=== PATIENT | female | born 1955 | race Caucasian/White ===

== ENCOUNTER 2018-09-02 19:44 | Inpatient (IN) ==
[2018-09-02] MEDS ORDERED: Ipratropium/Albuterol Neb 3 ML IH ONE (20:28)
[2018-09-02] MEDS ORDERED: 0.9 % Sodium Chloride 500 ML IVC ONE (20:29)
--- NOTE | 2018-09-02 20:53 | Emergency Department Note ---
Disposition Clinical Impression: Urinary retention Sacral decubitus ulcer Qualifiers: Pressure injury stage: unspecified pressure injury stage Qualified Code(s): L89.159 - Pressure ulcer of sacral region, unspecified stage UTI (urinary tract infection) Qualifiers: Urinary tract infection type: site unspecified Hematuria presence: without hematuria Qualified Code(s): N39.0 - Urinary tract infection, site not specified Anemia Qualifiers: Anemia type: unspecified type Qualified Code(s): D64.9 - Anemia, unspecified Disposition: Admitted As Inpatient Condition: Fair Forms: ED Satisfaction Letter Time of Disposition: 23:34 General Adult HPI - General Stated complaint: SOB/Butt wound Time Seen by Provider: 09/02/18 19:50 Source: patient, family Limitations: no limitations Nursing Notes Reviewed: Yes Vital Signs Reviewed: Yes - History of Present Illness Pain Scale: 9 - Related Data Home Medications Medication Instructions Recorded Confirmed Benadryl 03/09/15 03/09/15 Cardizem 03/09/15 03/09/15 Inderal 03/09/15 03/09/15 Klonopin 03/09/15 03/09/15 Lasix 03/09/15 03/09/15 Lisinopril 03/09/15 03/09/15 Melatonin 03/09/15 03/09/15 Nitroglycerin 03/09/15 03/09/15 Osteo Bi-Flex Caplet 03/09/15 03/09/15 OxyCODONE ER (12 HR) [Oxycontin] 30 mg PO TID 03/09/15 03/09/15 Plavix 03/09/15 03/09/15 Potassium Chloride 03/09/15 03/09/15 Synthroid 03/09/15 03/09/15 Allergies Allergy/AdvReac Type Severity Reaction Status Date / Time Amoxicillin Allergy Hives Verified 09/02/18 19:58 cetirizine [From Zyrtec] Allergy Hypertensio Verified 09/02/18 19:58 n Erythromycin Base Allergy Hives Verified 09/02/18 19:58 levofloxacin [From Levaquin] Allergy See Verified 09/02/18 19:58 Comments naproxen Allergy Rash Verified 09/02/18 19:58 Penicillins [PCN] Allergy Hives Verified 09/02/18 19:58 tramadol [From Ultram] Allergy Rash Verified 09/02/18 19:58 Past Medical History - Past Medical History Medical history: Reports: asthma, CHF, COPD, CVA, diabetes, fibromyalgia, glaucoma, hyperlipidemia, hypertension, thyroid disease, other Surgical history: Reports: angioplasty/stent, hysterectomy Psychiatric history: Reports: anxiety, panic disorder 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 - Social History Smoking Status: Current every day smoker Smokeless Tobacco Status: No Alcohol use: Reports: none Drug use: Reports: none Physical Exam - General Limitations: no limitations General appearance: alert - Rectal Exam B2B 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) Course Vital Signs Temperature 98.8 F 09/02/18 20:00 Pulse Rate 100 09/02/18 20:00 Respiratory Rate 24 09/02/18 20:00 Blood Pressure 142/63 09/02/18 20:00 O2 Sat by Pulse Oximetry 100 09/02/18 20:00 Temperature 98.8 F 09/02/18 20:03 Pulse Rate 93 09/02/18 22:00 Respiratory Rate 20 09/02/18 22:00 Blood Pressure 133/57 09/02/18 22:00 O2 Sat by Pulse Oximetry 100 09/02/18 22:05 Oxygen Delivery Oxygen Delivery Nasal Cannula Medical Decision Making - Lab Data Result diagrams: 09/02/18 21:52 09/02/18 20:50 Lab Results 09/02/18 09/02/18 09/02/18 Range/Units 20:50 21:52 21:52 WBC 9.6 (4.3-11.1) K/mcL RBC 2.74 L (3.82-4.97) M/mcL Hgb 7.5 L (11.5-15.4) g/dL Hct 24.1 L (35.3-44.9) % MCV 88.0 (83.0-100.0) fL MCH 27.4 L (28.0-33.3) pg MCHC 31.1 L (31.6-35.5) g/dL RDW 16.5 H (11.5-14.5) % Plt Count 133 L (140-400) K/mcL MPV 10.2 (9.4-12.4) fL Immature Gran % 0.2 (0-4) % Seg Neutrophils % 75.3 % Lymphocytes % 15.0 % Monocytes % 9.1 % Eosinophils % 0.3 % Basophils % 0.1 % Neutrophils # 7.3 (1.6-8.9) K/mcL Lymphocytes # 1.5 (0.6-4.6) K/mcL Monocytes # 0.9 (0.0-1.3) K/mcL Eosinophils # 0.0 (0.0-0.6) K/mcL Basophils # 0.0 (0.0-0.2) K/mcL PT 12.5 H (9.4-12.1) Seconds INR 1.1 APTT 27.1 (26.0-36.0) Seconds Sodium 135 L (136-145) mEq/L Potassium 3.5 (3.5-5.1) mEq/L Chloride 100 (98-107) mEq/L Carbon Dioxide 24 (23-29) mEq/L BUN 12 (8-23) mg/dL Creatinine 0.80 (0.60-1.20) mg/dL Est GFR ( Amer) > 60 (> 60) Est GFR (Non-Af Amer) > 60 (> 60) BUN/Creatinine Ratio 15 (6-26) Glucose 313 H (70-105) mg/dL Calculated Osmolality 292 (280-300) Lactic Acid (0.5-2.2) mmol/L Calcium 7.9 L (8.6-10.3) mg/dL Phosphorus 3.1 (2.7-4.5) mg/dL Magnesium 1.1 L (1.6-2.6) mg/dL Total Bilirubin 0.4 (0.3-1.0) mg/dL Direct Bilirubin 0.1 (0.0-0.2) mg/dL Indirect Bilirubin 0.3 (0.0-1.2) mg/dL AST 22 (13-39) Units/L ALT 20 (7-52) Units/L Alkaline Phosphatase 110 H (34-104) Units/L Troponin I < 0.03 (< 0.04) ng/mL Serum Total Protein 5.2 L (6.4-8.9) g/dL Albumin 2.7 L (3.5-5.7) g/dL Globulin 2.5 (2.4-3.5) g/dL Albumin/Globulin Ratio 1.1 (1.1-2.2) Urine Color (Yellow) Urine Clarity (Clear) Urine pH (5.0-8.0) pH Units Ur Specific [place] (1.010-1.025) Urine Protein (Neg-Trace) mg/dL Urine Glucose (UA) (Normal) mg/dL Urine Ketones (Negative) mg/dL Urine Blood (Negative) Urine Nitrite (Negative) Urine Bilirubin (Negative) Urine Urobilinogen (Normal) mg/dL Ur Leukocyte Esterase (Negative) Urine Microscopic RBC (0-3) per hpf Urine Microscopic WBC (0-3) per hpf Ur Squamous Epith Cells (None-Few) per lpf Urine Bacteria (None-Few) per hpf Hyaline Casts (None-Few) per lpf Ur Culture Indicated? (NO) 09/02/18 09/02/18 Range/Units 21:52 22:22 WBC (4.3-11.1) K/mcL RBC (3.82-4.97) M/mcL Hgb (11.5-15.4) g/dL Hct (35.3-44.9) % MCV (83.0-100.0) fL MCH (28.0-33.3) pg MCHC (31.6-35.5) g/dL RDW (11.5-14.5) % Plt Count (140-400) K/mcL MPV (9.4-12.4) fL Immature Gran % (0-4) % Seg Neutrophils % % Lymphocytes % % Monocytes % % Eosinophils % % Basophils % % Neutrophils # (1.6-8.9) K/mcL Lymphocytes # (0.6-4.6) K/mcL Monocytes # (0.0-1.3) K/mcL Eosinophils # (0.0-0.6) K/mcL Basophils # (0.0-0.2) K/mcL PT (9.4-12.1) Seconds INR APTT (26.0-36.0) Seconds Sodium (136-145) mEq/L Potassium (3.5-5.1) mEq/L Chloride (98-107) mEq/L Carbon Dioxide (23-29) mEq/L BUN (8-23) mg/dL Creatinine (0.60-1.20) mg/dL Est GFR ( Amer) (> 60) Est GFR (Non-Af Amer) (> 60) BUN/Creatinine Ratio (6-26) Glucose (70-105) mg/dL Calculated Osmolality (280-300) Lactic Acid 1.7 (0.5-2.2) mmol/L Calcium (8.6-10.3) mg/dL Phosphorus (2.7-4.5) mg/dL Magnesium (1.6-2.6) mg/dL Total Bilirubin (0.3-1.0) mg/dL Direct Bilirubin (0.0-0.2) mg/dL Indirect Bilirubin (0.0-1.2) mg/dL AST (13-39) Units/L ALT (7-52) Units/L Alkaline Phosphatase (34-104) Units/L Troponin I (< 0.04) ng/mL Serum Total Protein (6.4-8.9) g/dL Albumin (3.5-5.7) g/dL Globulin (2.4-3.5) g/dL Albumin/Globulin Ratio (1.1-2.2) Urine Color Yellow (Yellow) Urine Clarity Cloudy A (Clear) Urine pH 6.0 (5.0-8.0) pH Units Ur Specific [place] 1.008 L (1.010-1.025) Urine Protein Trace (Neg-Trace) mg/dL Urine Glucose (UA) 100 H (Normal) mg/dL Urine Ketones Negative (Negative) mg/dL Urine Blood Small H (Negative) Urine Nitrite Positive A (Negative) Urine Bilirubin Negative (Negative) Urine Urobilinogen Normal (Normal) mg/dL Ur Leukocyte Esterase Large H (Negative) Urine Microscopic RBC 3-5 H (0-3) per hpf Urine Microscopic WBC TNTC H (0-3) per hpf Ur Squamous Epith Cells Moderate H (None-Few) per lpf Urine Bacteria Many H (None-Few) per hpf Hyaline Casts None Seen (None-Few) per lpf Ur Culture Indicated? YES A (NO) Critical Care Time Critical Care Time: Yes Total Critical Care Time: 35 Attestation: Critical care performed: Time is exclusive of separately billable procedures. Time includes: direct patient care, patient reassessment, coordination of patient care, interpretation of data (laboratory data, radiology data, and respiratory data), review of patient's medical records, medical consultation and documentation of patient care. Procedures included in critical care time: Procedures excluded from critical care time: Attestation Statement - Attestation Attestation: I examined this patient and my medical decision-making was reviewed with the Resident Physician. I agree with the documented findings, disposition and treatment plan as described except to the extent set forth below. Patient presents to the ED with a chief complaint shortness of breath and a sacral 1. Patient has had increasing shortness of breath over the past day. Patient was recently brought here from out of town by her family to live with [facility]. Patient was admitted for respiratory failure and had a prolonged stay and was on a ventilator. She had a trach and PEG tube placed at that time. She also had a significant stroke with persistent left hemiplegia. She developed a sacral wound while in an LTAC that is getting worse. Termination she has an open wound over the sacrum. There is a moderate size area with a black eschar. The lateral portion of that is breaking loose. It is open. It was probed and culture sent. Foul-smelling. Lung sounds diminished. Plan. Cardiac workup. Culture sent. CT pelvis. Likely admission. Patient with UTI. Wound smells of pseudomonas. Starting broad-spectrum in about X to double cover Pseudomonas. We will admit. 11 7.5. Patient does admit a history of low blood counts Zonia recommended to see a "cancer doctor." Stool Hemoccult sent. We will type and cross. Patient is hemolytically stable at holding onto transfusion at this time. Calling for admission.
[2018-09-02 21:39] LABS: Alanine Aminotransferase 20 Units/L (7-52); Albumin 2.7 g/dL (3.5-5.7); Albumin/Globulin Ratio 1.1 (1.1-2.2); Alkaline Phosphatase 110 Units/L (34-104); Aspartate Amino Transferase 22 Units/L (13-39); BUN/Creatinine Ratio 15 (6-26); Bilirubin,Direct 0.1 mg/dL (0.0-0.2); Bilirubin,Indirect 0.3 mg/dL (0.0-1.2); Bilirubin,Total 0.4 mg/dL (0.3-1.0); Blood Urea Nitrogen 12 mg/dL (8-23); Calcium 7.9 mg/dL (8.6-10.3); Carbon Dioxide 24 mEq/L (23-29); Chloride 100 mEq/L (98-107); Globulin 2.5 g/dL (2.4-3.5); Glucose 313 mg/dL (70-105); Magnesium 1.1 mg/dL (1.6-2.6); Osmolality,Calculated 292 (280-300); Phosphorous 3.1 mg/dL (2.7-4.5); Potassium 3.5 mEq/L (3.5-5.1); Sodium 135 mEq/L (136-145); Total Protein 5.2 g/dL (6.4-8.9); Troponin I < 0.03 ng/mL (< 0.04); eGFR For Non-African Americans > 60 (> 60)
[2018-09-02] MEDS ORDERED: Isovue-370 500 ML BOTTLE IVP ONE (21:40)
--- NOTE | 2018-09-02 21:41 | Emergency Department Note ---
Disposition Clinical Impression: Urinary retention Sacral decubitus ulcer Qualifiers: Pressure injury stage: unspecified pressure injury stage Qualified Code(s): L89.159 - Pressure ulcer of sacral region, unspecified stage UTI (urinary tract infection) Qualifiers: Urinary tract infection type: site unspecified Hematuria presence: without hematuria Qualified Code(s): N39.0 - Urinary tract infection, site not specified Anemia Qualifiers: Anemia type: unspecified type Qualified Code(s): D64.9 - Anemia, unspecified Disposition: Admitted As Inpatient Condition: Fair Referrals: NONE,PCP [Primary Care Provider] - Forms: ED Satisfaction Letter Time of Disposition: 23:42 SOB HPI - General Chief Complaint: ED Shortness of Breath/Dyspnea Stated Complaint: SOB/Butt wound Time Seen by Provider: 09/02/18 19:50 Source: patient, family Limitations: no limitations - History of Present Illness 63-year-old female that was recently admitted to the hospital June through August of this year for stroke, respiratory failure. Patient spent a long time in the ICU first intubated on a ventilator and then with a tracheostomy tube. Patient was sent to a long-term care facility for rehabilitation and while there developed a sacral decubitus ulcer. Daughter has been taking care of her in her home, is a nurse, and states that today she became more short of breath so brou ght her to the hospital to be evaluated. Daughter notes that the wound on her backside appears to be getting worse, has a foul odor, and is now draining green purulent material. Daughter notes that she wanted to give her a breathing treatment today but did not have a nebulizer or any medication. Pt was seen at [facility] this week and they told her to follow up with wound care, but she could not get an appointment until next week. - Related Data Home Medications Medication Instructions Recorded Confirmed Benadryl 03/09/15 03/09/15 Cardizem 03/09/15 03/09/15 Inderal 03/09/15 03/09/15 Klonopin 03/09/15 03/09/15 Lasix 03/09/15 03/09/15 Lisinopril 03/09/15 03/09/15 Melatonin 03/09/15 03/09/15 Nitroglycerin 03/09/15 03/09/15 Osteo Bi-Flex Caplet 03/09/15 03/09/15 OxyCODONE ER (12 HR) [Oxycontin] 30 mg PO TID 03/09/15 03/09/15 Plavix 03/09/15 03/09/15 Potassium Chloride 03/09/15 03/09/15 Synthroid 03/09/15 03/09/15 Allergies Allergy/AdvReac Type Severity Reaction Status Date / Time Amoxicillin Allergy Hives Verified 09/02/18 19:58 cetirizine [From Zyrtec] Allergy Hypertensio Verified 09/02/18 19:58 n Erythromycin Base Allergy Hives Verified 09/02/18 19:58 levofloxacin [From Levaquin] Allergy See Verified 09/02/18 19:58 Comments naproxen Allergy Rash Verified 09/02/18 19:58 Penicillins [PCN] Allergy Hives Verified 09/02/18 19:58 tramadol [From Ultram] Allergy Rash Verified 09/02/18 19:58 Review of Systems: All systems ED: reviewed and negative except as stated. Constitutional: Denies: fever, Reports: chills ENT ED: Denies: ear pain, throat pain Cardiovascular: Denies: chest pain, palpitations Respiratory: Denies: cough, Reports: dyspnea Gastrointestinal: Denies: abdominal pain, nausea, vomiting, diarrhea, constipation Genitourinary: Denies: urgency, dysuria, frequency Musculoskeletal: Denies: neck pain Reports: back pain Integumentary: Denies: rash, abrasion Reports: sacral decubitus ulcer Neurological: Denies: weakness, numbness, paresthesias Reports: headache Psychiatric: Denies: anxiety, depression Endocrine: Denies: fatigue, heat or cold intolerance Hematological/Lymphatic: Denies: easy bleeding, easy bruising Allergic/Immunologic: Denies: facial swelling, urticaria Past Medical History - Past Medical History Attestation: Yes The following information was validated with the patient. 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 No acute distress. Thin, cachetic female. Head: atraumatic, normocephalic. ENT: Right eye is closed, but pt can open it if you ask. Oropharynx non- erythematous. mucous membranes tacky. Neuro: Pt has residual left sided weakness from previous CVA. Pulm: Diminished lung sounds in bases. Cardio: RRR no m/r/g. Chest not tender to palpation. Abd: Distended. Tender to palpation. No guarding. Non rigid. States that she pees if you push on her abdomen. Back: 8cm sacral decubitus ulcer with area of black eschar on left buttock, with open area on right buttock draining greenish purulent fluid. Foul smell noted. Extremities: Radial pulses 2+ rudy Mild, non-pitting LE edema. No cyanosis, clubbing. Skin: warm, dry, intact. No rashes. Psych: Appropriate mood and affect. Answers questions appropriately. Cooperative with exam. - General Limitations: no limitations General appearance: alert Course Course Narrative: Ddx includes but is not limited to: sepsis from decubitus ulcer, PNA Workup will include: Wound culture, CXR, EKG, CT Pelvis, sepsis labs. Suspect admit. Vital Signs Temperature 98.8 F 09/02/18 20:00 Pulse Rate 100 09/02/18 20:00 Respiratory Rate 24 09/02/18 20:00 Blood Pressure 142/63 09/02/18 20:00 O2 Sat by Pulse Oximetry 100 09/02/18 20:00 Temperature 98.8 F 09/02/18 20:03 Pulse Rate 93 09/02/18 22:00 Respiratory Rate 20 09/02/18 22:00 Blood Pressure 133/57 09/02/18 22:00 O2 Sat by Pulse Oximetry 100 09/02/18 22:05 Oxygen Delivery Oxygen Delivery Nasal Cannula Shortness of Breath/Dyspnea - [facility] Narrative Medical decision making narrative: Pts CT showed evidence of deep soft tissue infection and inflammation overlying the sacral decubitus ulcer, as well as enlarged bladder. Labs showed anemia at 7.5, elevated glucose >300, Lactic 1.7. Pt was admitted to hospitalist, Dr Jose doherty, who agreed to accept the pt to his service. Pt was given ertapenem and cefepime to cover for pseudomonas, a small bolus due to consideration for hx of CHF, had wound cultures, urine cultures, and blood cultures sent to lab. Patient was given an opportunity to ask questions at bedside and all of their concerns were addressed. Patient verbalized understanding and agreement with plan of care. Pt remained stable while in the department. - Medical Records Medical records reviewed: Yes I reviewed the patient's medical records. - Lab Data Lab results reviewed: Yes I reviewed the patient's lab results. Result diagrams: 09/02/18 21:52 09/02/18 20:50 Lab Results 09/02/18 09/02/18 09/02/18 Range/Units 20:50 21:52 21:52 WBC 9.6 (4.3-11.1) K/mcL RBC 2.74 L (3.82-4.97) M/mcL Hgb 7.5 L (11.5-15.4) g/dL Hct 24.1 L (35.3-44.9) % MCV 88.0 (83.0-100.0) fL MCH 27.4 L (28.0-33.3) pg MCHC 31.1 L (31.6-35.5) g/dL RDW 16.5 H (11.5-14.5) % Plt Count 133 L (140-400) K/mcL MPV 10.2 (9.4-12.4) fL Immature Gran % 0.2 (0-4) % Seg Neutrophils % 75.3 % Lymphocytes % 15.0 % Monocytes % 9.1 % Eosinophils % 0.3 % Basophils % 0.1 % Neutrophils # 7.3 (1.6-8.9) K/mcL Lymphocytes # 1.5 (0.6-4.6) K/mcL Monocytes # 0.9 (0.0-1.3) K/mcL Eosinophils # 0.0 (0.0-0.6) K/mcL Basophils # 0.0 (0.0-0.2) K/mcL PT 12.5 H (9.4-12.1) Seconds INR 1.1 APTT 27.1 (26.0-36.0) Seconds Sodium 135 L (136-145) mEq/L Potassium 3.5 (3.5-5.1) mEq/L Chloride 100 (98-107) mEq/L Carbon Dioxide 24 (23-29) mEq/L BUN 12 (8-23) mg/dL Creatinine 0.80 (0.60-1.20) mg/dL Est GFR ( Amer) > 60 (> 60) Est GFR (Non-Af Amer) > 60 (> 60) BUN/Creatinine Ratio 15 (6-26) Glucose 313 H (70-105) mg/dL Calculated Osmolality 292 (280-300) Lactic Acid (0.5-2.2) mmol/L Calcium 7.9 L (8.6-10.3) mg/dL Phosphorus 3.1 (2.7-4.5) mg/dL Magnesium 1.1 L (1.6-2.6) mg/dL Total Bilirubin 0.4 (0.3-1.0) mg/dL Direct Bilirubin 0.1 (0.0-0.2) mg/dL Indirect Bilirubin 0.3 (0.0-1.2) mg/dL AST 22 (13-39) Units/L ALT 20 (7-52) Units/L Alkaline Phosphatase 110 H (34-104) Units/L Troponin I < 0.03 (< 0.04) ng/mL Serum Total Protein 5.2 L (6.4-8.9) g/dL Albumin 2.7 L (3.5-5.7) g/dL Globulin 2.5 (2.4-3.5) g/dL Albumin/Globulin Ratio 1.1 (1.1-2.2) Urine Color (Yellow) Urine Clarity (Clear) Urine pH (5.0-8.0) pH Units Ur Specific [place] (1.010-1.025) Urine Protein (Neg-Trace) mg/dL Urine Glucose (UA) (Normal) mg/dL Urine Ketones (Negative) mg/dL Urine Blood (Negative) Urine Nitrite (Negative) Urine Bilirubin (Negative) Urine Urobilinogen (Normal) mg/dL Ur Leukocyte Esterase (Negative) Urine Microscopic RBC (0-3) per hpf Urine Microscopic WBC (0-3) per hpf Ur Squamous Epith Cells (None-Few) per lpf Urine Bacteria (None-Few) per hpf Hyaline Casts (None-Few) per lpf Ur Culture Indicated? (NO) Stool Occult Bld Scrn (Negative) 09/02/18 09/02/18 09/02/18 Range/Units 21:52 22:22 23:31 WBC (4.3-11.1) K/mcL RBC (3.82-4.97) M/mcL Hgb (11.5-15.4) g/dL Hct (35.3-44.9) % MCV (83.0-100.0) fL MCH (28.0-33.3) pg MCHC (31.6-35.5) g/dL RDW (11.5-14.5) % Plt Count (140-400) K/mcL MPV (9.4-12.4) fL Immature Gran % (0-4) % Seg Neutrophils % % Lymphocytes % % Monocytes % % Eosinophils % % Basophils % % Neutrophils # (1.6-8.9) K/mcL Lymphocytes # (0.6-4.6) K/mcL Monocytes # (0.0-1.3) K/mcL Eosinophils # (0.0-0.6) K/mcL Basophils # (0.0-0.2) K/mcL PT (9.4-12.1) Seconds INR APTT (26.0-36.0) Seconds Sodium (136-145) mEq/L Potassium (3.5-5.1) mEq/L Chloride (98-107) mEq/L Carbon Dioxide (23-29) mEq/L BUN (8-23) mg/dL Creatinine (0.60-1.20) mg/dL Est GFR ( Amer) (> 60) Est GFR (Non-Af Amer) (> 60) BUN/Creatinine Ratio (6-26) Glucose (70-105) mg/dL Calculated Osmolality (280-300) Lactic Acid 1.7 (0.5-2.2) mmol/L Calcium (8.6-10.3) mg/dL Phosphorus (2.7-4.5) mg/dL Magnesium (1.6-2.6) mg/dL Total Bilirubin (0.3-1.0) mg/dL Direct Bilirubin (0.0-0.2) mg/dL Indirect Bilirubin (0.0-1.2) mg/dL AST (13-39) Units/L ALT (7-52) Units/L Alkaline Phosphatase (34-104) Units/L Troponin I (< 0.04) ng/mL Serum Total Protein (6.4-8.9) g/dL Albumin (3.5-5.7) g/dL Globulin (2.4-3.5) g/dL Albumin/Globulin Ratio (1.1-2.2) Urine Color Yellow (Yellow) Urine Clarity Cloudy A (Clear) Urine pH 6.0 (5.0-8.0) pH Units Ur Specific [place] 1.008 L (1.010-1.025) Urine Protein Trace (Neg-Trace) mg/dL Urine Glucose (UA) 100 H (Normal) mg/dL Urine Ketones Negative (Negative) mg/dL Urine Blood Small H (Negative) Urine Nitrite Positive A (Negative) Urine Bilirubin Negative (Negative) Urine Urobilinogen Normal (Normal) mg/dL Ur Leukocyte Esterase Large H (Negative) Urine Microscopic RBC 3-5 H (0-3) per hpf Urine Microscopic WBC TNTC H (0-3) per hpf Ur Squamous Epith Cells Moderate H (None-Few) per lpf Urine Bacteria Many H (None-Few) per hpf Hyaline Casts None Seen (None-Few) per lpf Ur Culture Indicated? YES A (NO) Stool Occult Bld Scrn Negative (Negative) - Radiology Data Radiology results reviewed: Yes I reviewed the patient's radiology results. Chest X-Ray 09/02/18 20:27 IMPRESSION: No acute abnormality identified. D/ / Alphonso Salcedo MD / Alphonso Salcedo MD Interpreting Provider: Alphonso Salcedo MD Pelvis CT 09/02/18 21:40 IMPRESSION: 1. Deep soft tissue ulcer overlying the inferior left sacrum and to the left of the coccyx. No evidence of abscess. No CT evidence of osteomyelitis at this time. 2. Severe distention of the urinary bladder with distal hydroureter. 3. Mild haziness of the presacral fat, which could be related to inflammation in the rectum versus reactive to inflammation at the sacral decubitus ulcer. D/ / Ruchi Vanegas / Ruchi Vanegas Interpreting Provider: Ruchi Vanegas - EKG Data EKG attestation: Yes I reviewed and interpreted this EKG. EKG results narrative: HR 101, rhythm sinus tachycardia, axis normal. [place] 125, QRS 86, QTc 429. 1 PVC noted on EKG. No evidence of ST elevation or depression.
[2018-09-02 22:13] LABS: Basophils % 0.1 %; Eosinophils % 0.3 %; Hematocrit 24.1 % (35.3-44.9); Hemoglobin 7.5 g/dL (11.5-15.4); Immature Granulocytes % 0.2 % (0-4); Lymphocytes # 1.5 K/mcL (0.6-4.6); Mean Corpuscular HGB Conc 31.1 g/dL (31.6-35.5); Mean Corpuscular Hemoglobin 27.4 pg (28.0-33.3); Mean Platelet Volume 10.2 fL (9.4-12.4); Monocytes # 0.9 K/mcL (0.0-1.3); Monocytes % 9.1 %; Neutrophils # 7.3 K/mcL (1.6-8.9); Platelet Count 133 K/mcL (140-400); Red Blood Count 2.74 M/mcL (3.82-4.97); Red Cell Distribution Width 16.5 % (11.5-14.5); Segmented Neutrophils % 75.3 %
[2018-09-02 22:21] LABS: INR 1.1; Prothrombin Time 12.5 Seconds (9.4-12.1)
[2018-09-02 22:24] LABS: Activated Partial Thrombo Time 27.1 Seconds (26.0-36.0)
[2018-09-02 22:40] LABS: Bilirubin,Urine Negative (Negative); Blood,Urine Small (Negative); Clarity,Urine Cloudy (Clear); Color,Urine Yellow (Yellow); Glucose,Urine (UA) 100 mg/dL (Normal); Ketones,Urine Negative (Negative); Leukocyte Esterase,Urine Large (Negative); Nitrite,Urine Positive (Negative); Protein,Urine Trace mg/dL (Neg-Trace); Specific Gravity,Urine 1.008 (1.010-1.025); Urobilinogen,Urine Normal (Normal)
[2018-09-02 22:42] LABS: Bacteria,Urine Many per hpf (None-Few); Hyaline Casts,Urine None Seen per lpf (None-Few); Squamous Epithelial Cell,Urine Moderate per lpf (None-Few); WBC,Urine TNTC per hpf (0-3)
[2018-09-02] MEDS ORDERED: Ertapenem 1,000 MG in 0.9 % Sodium Chloride Mini Bag 100 ML IVPB STA (23:08)
[2018-09-02] MEDS ORDERED: Cefepime HCl 2,000 MG in 0.9 % Sodium Chloride Mini Bag 100 ML IVPB STA (23:10)
[2018-09-03] MEDS ORDERED: Dextrose Gel 15 GM/37.5 ML TUBE PO PRN ×2 (02:30)
[2018-09-03] MEDS ORDERED: *HR* Dextrose 50 % in Water (Syg) 50 ML SYRINGE IVP PRN (02:30)
[2018-09-03] MEDS ORDERED: Ondansetron 4 MG/2 ML VIAL IVP PRN (02:30)
[2018-09-03] MEDS ORDERED: D5% in Water 1,000 ML IVC PRN (02:30)
[2018-09-03] MEDS ORDERED: Naloxone 0.4 MG/ML INJ IVP PRN (02:30)
[2018-09-03] MEDS ORDERED: Albuterol 2.5 MG/3 ML NEBULIZER IH PRN (02:30)
[2018-09-03 03:13] LABS: Basophils % 0.1 %; Eosinophils # 0.1 K/mcL (0.0-0.6); Eosinophils % 0.9 %; Hematocrit 26.6 % (35.3-44.9); Hemoglobin 8.3 g/dL (11.5-15.4); Immature Granulocytes % 0.3 % (0-4); Lymphocytes # 1.8 K/mcL (0.6-4.6); Lymphocytes % 18.5 %; Mean Corpuscular HGB Conc 31.2 g/dL (31.6-35.5); Mean Corpuscular Hemoglobin 27.2 pg (28.0-33.3); Mean Corpuscular Volume 87.2 fL (83.0-100.0); Monocytes # 0.7 K/mcL (0.0-1.3); Monocytes % 6.6 %; Neutrophils # 7.3 K/mcL (1.6-8.9); Platelet Count 142 K/mcL (140-400); Red Blood Count 3.05 M/mcL (3.82-4.97); Red Cell Distribution Width 16.5 % (11.5-14.5); Segmented Neutrophils % 73.6 %
[2018-09-03 03:32] LABS: Alanine Aminotransferase 18 Units/L (7-52); Albumin 2.5 g/dL (3.5-5.7); Alkaline Phosphatase 101 Units/L (34-104); Aspartate Amino Transferase 17 Units/L (13-39); BUN/Creatinine Ratio 15 (6-26); Bilirubin,Total 0.4 mg/dL (0.3-1.0); Blood Urea Nitrogen 11 mg/dL (8-23); Calcium 7.9 mg/dL (8.6-10.3); Carbon Dioxide 29 mEq/L (23-29); Chloride 103 mEq/L (98-107); Globulin 2.5 g/dL (2.4-3.5); Glucose 151 mg/dL (70-105); Magnesium 1.1 mg/dL (1.6-2.6); Osmolality,Calculated 292 (280-300); Phosphorous 2.8 mg/dL (2.7-4.5); Potassium 3.2 mEq/L (3.5-5.1); Sodium 140 mEq/L (136-145); eGFR For Non-African Americans > 60 (> 60)
[2018-09-03] MEDS: 0.9 % Sodium Chloride w KCl 20 MEQ/1,000 ML MLS IVC SCH ×2 (03:52→11:57)
[2018-09-03] MEDS: Hydrocortisone Sodium Succ 100 MG/2 ML VIAL IVP SCH ×3 (03:56→18:36)
--- NOTE | 2018-09-03 04:04 | Internal Med History&Physical ---
Date of Encounter: 09/03/18 Time of Encounter: 02:05 Internal Medicine - H&P: HPI Chief complaint: sacral wound/ulcer; SOB Admitted From: Emergency Dept Plans for Post Hospital Care: Transfer Snf Facility History of present illness: Ms. Rosenthal is a 63 year old female who was brought in by her daughter for c oncerns of a foul smelling and worsening sacral decubitus ulcer. Patient was recently moved to her daughter's house in [place], [place] from [place]. Patient had a long and complicated hospital course for over the last few months since June of this year. She was hospitalized back home in [place] for respiratory failure and pneumonia. 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 She had to be intubated 3 times and had a prolonged intubated course. She then underwent tracheostomy and PEG tube placement and was transferred to LTAC. She later developed sacral ulcer with failure to improve. She was eventually discharged from LTAC and w eaned off the ventilator. She has been eating on her own and breathing on her own. However, sacral ulcer has failed to improve and has clinically worsened. Her daughter brought her back to [place] to help take care of her since she no longer qualified for ECF and/or inpatient nursing care. Unfortunately, she has been here in [place] for a one-week and her daughter reports the sacral wound is worsening. She therefore brought her to the ER today for evaluation. Daughter also reports the patient had increased difficulty breathing and was having some coughing. Workup in ER revealed patient to have anemia, large sacral foul smelling ulcer, and debilitated state. She was admitted to hospitalist service for further workup and care. I saw patient in ER and discussed with patient and daughter extensively. We have no old records. All history was obtained from daughter and patient. Patient and daughter deny any history of blood loss or bleeding. They do not know if patient has ever had any anemia in the past. Daughter does report that she has had bilateral adrenalectomies in the past for adrenal tumors. She has since been on steroid replacement therapy at home and is at risk for adrenal insufficiency. I asked patient and daughter to sign consent so we can obtain old records from her hospital stay in [place]. I discussed CODE STATUS with patient and family and she is full code. Past Med Surg Social Fam HX - Past Medical History Attestation: Yes The following information was validated with the patient. Source: patient, obtained from family Medical history: asthma, CHF, COPD, CVA, diabetes, fibromyalgia, glaucoma, hyperlipidemia, hypertension, thyroid disease Additional medical history: Stg 3 buttock wound-now unstagable Psychiatric history: anxiety, panic disorder - Past Surgical History Surgical History: angioplasty/stent, hysterectomy Additional surgical history: adrenal glands removed. trach and trach removal. cardiac stents x2 - Social History Smoking Status: Current every day smoker Smokeless Tobacco Status: No Alcohol use: none Drug use: none Current living situation: Home, With Family Activity Level: Bed bound, Mostly sedentary Recent Out of Country Travel Within the Last 8 Weeks: No - Family History Mother History Unknown: Yes Father History Unknown: Yes Internal Medicine - H&P: Meds Inderal 10 mg PO BID 03/09/15 [History] Klonopin 1 mg PO TID 03/09/15 [History] Lasix 20 mg PO DAILY 03/09/15 [History] Lipitor 80 mg PO DAILY 03/09/15 [History] OxyCODONE ER (12 HR) [Oxycontin] 30 mg PO BID 03/09/15 [History] Plavix 75 mg PO DAILY 03/09/15 [History] Potassium Chloride 10 meq PO BID 03/09/15 [History] Synthroid 50 mcg PO DAILY 03/09/15 [History] Colace 100 mg PO BID 09/03/18 [History] Colace 200 mg PO BID 09/03/18 [History] Fludrocortisone Acetate [Florinef] 0.1 mg PO DAILY 09/03/18 [History] Folic Acid 1 mg PO DAILY 09/03/18 [History] Ipratropium/Albuterol Neb [Duoneb] IH Q6HR 09/03/18 [History] Mirtazapine [Remeron] 15 mg PO HS 09/03/18 [History] Pantoprazole Sodium [Protonix] 40 mg PO 09/03/18 [History] PredniSONE [Cm] 5 mg PO 09/03/18 [History] Vitamin D2 50,000 units PO QWEEK 09/03/18 [History] hydrOXYzine pamoate [HydrOXYzine Pamoate] 25 mg PO TID 09/03/18 [History] Allergy/AdvReac Type Severity Reaction Status Date / Time Amoxicillin Allergy Hives Verified 09/02/18 19:58 cetirizine [From Zyrtec] Allergy Hypertensio Verified 09/02/18 19:58 n Erythromycin Base Allergy Hives Verified 09/02/18 19:58 levofloxacin [From Levaquin] Allergy See Verified 09/02/18 19:58 Comments naproxen Allergy Rash Verified 09/02/18 19:58 Penicillins [PCN] Allergy Hives Verified 09/02/18 19:58 tramadol [From Ultram] Allergy Rash Verified 09/02/18 19:58 - Constitutional Constitutional: fatigue, lethargy, no chills, no fever(s), no night sweats - EENT Eyes: no blurry vision, no change in vision Ears: no ear pain, no tinnitus Nose, mouth and throat: no nasal congestion, no sinus pressure, no sore throat - Cardiovascular Cardiovascular ROS IM: dyspnea, no chest pain, no orthopnea, no syncope - Respiratory Respiratory: cough, dyspnea, chest congestion, change in phlegm color, no hemoptysis - Gastrointestinal Gastrointestinal: no abdominal pain, no coffee ground emesis, no diarrhea, no hematemesis, no hematochezia, no melena, no nausea, no vomiting - Genitourinary Genitourinary: no dysuria, no flank pain, no menorrhagia - Musculoskeletal Musculoskeletal ROS IM: no arthralgias, no back pain - Integumentary Integumentary IM: no rash, no jaundice - Neurological Neurological ROS: focal weakness (left sided weakness/paresis), no convulsions, no dizziness, no frequent falls, no headache(s) - Psychiatric Psychiatric: no anxiety, no depression - Endocrine Endocrine IM: no cold intolerance, no heat intolerance, no polydipsia, no polyuria - Allergic/Immunologic Allergic/Immunologic: no wheezing, no GI upset with certain foods - Constitutional Vitals: Temp Pulse Resp BP Pulse Ox 99.9 F H 113 16 134/47 98 09/03/18 02:58 09/03/18 02:58 09/03/18 02:58 09/03/18 02:58 09/03/18 02:58 General appearance: Present: cooperative, A&O X 3, pleasant, answers questions appropriately Exam: see below - Head Head exam: Present: atraumatic, normal inspection - Eye Eye exam: Present: EOMI, PERRL. Absent: scleral icterus Pupils: Present: normal accommodation - ENT ENT exam: Present: mucous membranes dry, normal exam, normal oropharynx - Neck Neck exam general surgery: Present: full ROM, supple, trachea midline. Absent: lymphadenopathy, tenderness, nuchal rigidity, thyromegaly - Respiratory Respiratory exam: Present: rhonchi, wheezes. Absent: accessory muscle use, ch est wall tenderness, rales, respiratory distress, tachypnea - Cardiovascular Cardiovascular exam: Present: distant heart sounds, +S1, +S2. Absent: diastolic murmur, systolic murmur - GI/Abdominal GI/Abdominal exam: Present: normal bowel sounds, soft. Absent: guarding, hepatomegaly, rebound, splenomegaly, tenderness - Extremities Exam Extremities exam: Present: full ROM, normal capillary refill, warm, radial pulses palpable and symmetrical. Absent: calf tenderness, pedal edema, tenderness - Back Exam Back exam: Absent: CVA tenderness (L), CVA tenderness (R) Additional comments: large/deep foul smelling sacral ulcer -- currently dressed and bandaged - Neurological Exam Neurological exam: Present: alert, CN II-XII intact, oriented X3 Additional comments: left sided weakness/decreased motor function - Psychiatric Psychiatric exam: Present: normal affect, normal mood - Skin Skin exam: Present: dry, intact, warm Internal Med - H&P Results - Labs CBC & Chem 7: 09/03/18 03:03 09/03/18 03:03 Labs: Short CBC 09/02/18 09/03/18 Range/Units 21:52 03:03 WBC 9.6 9.9 (4.3-11.1) K/mcL Hgb 7.5 L 8.3 L (11.5-15.4) g/dL Hct 24.1 L 26.6 L (35.3-44.9) % Plt Count 133 L 142 (140-400) K/mcL Neutrophils # 7.3 7.3 (1.6-8.9) K/mcL BMP 09/02/18 09/03/18 20:50 03:03 Sodium 135 L 140 Potassium 3.5 3.2 L Chloride 100 103 Carbon Dioxide 24 29 BUN 12 11 Creatinine 0.80 0.72 Glucose 313 H 151 H Calcium 7.9 L 7.9 L Cardiac Enzymes 09/02/18 Range/Units 20:50 Troponin I < 0.03 (< 0.04) ng/mL Liver Function 09/02/18 09/03/18 Range/Units 20:50 03:03 Total Bilirubin 0.4 0.4 (0.3-1.0) mg/dL Direct Bilirubin 0.1 (0.0-0.2) mg/dL AST 22 17 (13-39) Units/L ALT 20 18 (7-52) Units/L Alkaline Phosphatase 110 H 101 (34-104) Units/L Albumin 2.7 L 2.5 L (3.5-5.7) g/dL Urine 09/02/18 Range/Units 22:22 Urine Color Yellow (Yellow) Urine Clarity Cloudy A (Clear) Urine pH 6.0 (5.0-8.0) pH Units Ur Specific [place] 1.008 L (1.010-1.025) Urine Protein Trace (Neg-Trace) mg/dL Urine Glucose (UA) 100 H (Normal) mg/dL - EKG Data -: EKG Interpreted by Myself - EKG Data Prior EKG available for review: no EKG comments: 09/03/18 04:17 Sinus tachycardia - Impressions ITS Impressions Chest X-Ray 09/02/18 20:27 IMPRESSION: No acute abnormality identified. D/ / Alphonso Salcedo MD / Alphonso Salcedo MD Interpreting Provider: Alphonso Salcedo MD Pelvis CT 09/02/18 21:40 IMPRESSION: 1. Deep soft tissue ulcer overlying the inferior left sacrum and to the left of the coccyx. No evidence of abscess. No CT evidence of osteomyelitis at this time. 2. Severe distention of the urinary bladder with distal hydroureter. 3. Mild haziness of the presacral fat, which could be related to inflammation in the rectum versus reactive to inflammation at the sacral decubitus ulcer. D/ / Ruchi Vanegas / Ruchi Vanegas Interpreting Provider: Ruchi Vanegas - Diagnostic Studies Chest x-ray Status: image reviewed by me (negative) - Assessment and Plan (1) Sacral decubitus ulcer Current Visit: Yes Status: Acute Assessment and plan: 1. Blood and wound cultures obtained. 2. Will continue antibiotics with Ertapenem and Flagyl. 3. Consult Wound care; patient will likely need surgery consultation as well. 4. Patient will likely need ECF upon discharge. Qualifiers: Pressure injury stage: unstageable Qualified Code(s): L89.150 - Pressure ulcer of sacral region, unstageable (2) UTI (urinary tract infection) Current Visit: Yes Status: Acute Assessment and plan: 1. Urine culture obtained. 2. Antibiotic as above. 3. IVF hydration. 4. Follow culture results and adjust antibiotics accordingly. Qualifiers: Urinary tract infection type: site unspecified Hematuria presence: without hematuria Qualified Code(s): N39.0 - Urinary tract infection, site not specified (3) COPD exacerbation Current Visit: Yes Status: Acute Assessment and plan: 1. Oxygen, aerosols, and antibiotics as above. 2. Monitor clinically. 3. Presently, exacerbation is mild. 4. Consider BiPap if patient starts to decompensate. (4) Anemia Current Visit: Yes Status: Acute Assessment and plan: 1. Patient denies any report of GI blood loss. 2. Patient has hysterectomy in the past -- thus no vaginal bleeding. 3. Will obtain old records and monitor H/H. 4. Will order Iron studies. 5. Suspect anemia of chronic disease. Qualifiers: Anemia type: unspecified type Qualified Code(s): D64.9 - Anemia, unspecified (5) Adrenal insufficiency Current Visit: Yes Status: Acute Assessment and plan: 1. Will order stress dose steroids in the setting of acute UTI and sacral wound infection. 2. Will need to obtain and verify home med list and resume home steroid replacement therapy once stable. 3. Monitor fluid balance and hemodynamics. (6) DVT prophylaxis Current Visit: Yes Status: Acute Assessment and plan: 1. EPCD's.
[2018-09-03] MEDS: Acetaminophen 325 MG TABLET PO PRN ×2 (04:14→17:26)
[2018-09-03] MEDS: Ipratropium/Albuterol Neb 3 ML IH SCH ×2 (04:24→11:05)
[2018-09-03 04:46] LABS: Iron < 10 mcg/dL (50-170); Transferrin 112 mg/dL (203-362)
[2018-09-03 04:57] LABS: Estimated Average Glucose 166 mg/dl; Hemoglobin A1C 7.4 %
--- NOTE | 2018-09-03 07:59 | Event Note ---
Date of Encounter: 09/03/18 Time of Encounter: 07:45 Patient seen and examined this morning. Barely arousable. No able to offer any complains. Hemodynamically stable. Admitted for worsening decubitus ulcer. f/u Blood and wound culture. Switch to cefepime as she received in ER without reaction along with flagyl. Wound care care and surgery consulted. Also with possible uti mild copd exacrbation. on steroid for adrenal insufficiency. Will confirm home medications before restarting.
[2018-09-03] MEDS: Insulin LISPRO 300 UNITS/3 ML VIAL SQ SCH ×4 (08:47→21:58)
[2018-09-03] MEDS: MetroNIDAZOLE 500 MG/100 ML 500 MG/100 ML BAG IVPB SCH ×2 (08:47→17:23)
[2018-09-03 10:14] LABS: Hematocrit 24.6 % (35.3-44.9); Hemoglobin 7.8 g/dL (11.5-15.4)
--- NOTE | 2018-09-03 10:23 | Electrocardiograph Report ---
[place] [id number] Test Date: 2018-09-02 Pat Name: Jacy Rosenthal Department: EXAM3 Room: 3A15 Gender: F [place] [employer]er: : [id number] Requested By: Carmen See Order Number: [id number] Reading MD: Manuel Kirk Measurements Intervals [place] Rate: 101 P: 79 MD: 125 QRS: 65 QRSD: 86 T: 80 QT: 331 QTc: 429 Interpretive Statements Sinus tachycardia Ventricular premature complex Electronically Signed On 09-03-2018 10:21:34 EDT by Manuel Kirk
[2018-09-03] MEDS: Cefepime HCl 2,000 MG in Water for inj. (sterile) 20 ML 20 ML IVP SCH ×2 (11:57→17:25)
[2018-09-03 16:09] LABS: Hematocrit 25.2 % (35.3-44.9); Hemoglobin 8.2 g/dL (11.5-15.4)
[2018-09-03] MEDS: clonazePAM 1 MG TABLET PO PRN (21:55)
[2018-09-03] MEDS: *HR* HYDROcodone/Acet 5/325 mg TABLET PO PRN (21:55)
[2018-09-03] MEDS: Primidone 50 MG TABLET PO SCH (21:55)
[2018-09-03] MEDS: Mirtazapine 15 MG TABLET PO SCH (21:56)
[2018-09-03 22:23] LABS: Hematocrit 30.1 % (35.3-44.9); Hemoglobin 9.5 g/dL (11.5-15.4)
[2018-09-04] MEDS: Cefepime HCl 2,000 MG in Water for inj. (sterile) 20 ML 20 ML IVP SCH ×3 (00:05→15:55)
[2018-09-04] MEDS: MetroNIDAZOLE 500 MG/100 ML 500 MG/100 ML BAG IVPB SCH ×3 (00:06→15:54)
[2018-09-04] MEDS ORDERED: Ertapenem 1,000 MG in 0.9 % Sodium Chloride Mini Bag 100 ML IVPB SCH (01:00)
[2018-09-04 01:45] LABS: Hematocrit 24.3 % (35.3-44.9); Hemoglobin 7.8 g/dL (11.5-15.4); Immature Granulocytes % 0.3 % (0-4); Lymphocytes # 0.6 K/mcL (0.6-4.6); Lymphocytes % 8.5 %; Mean Corpuscular HGB Conc 32.1 g/dL (31.6-35.5); Mean Corpuscular Volume 84.1 fL (83.0-100.0); Mean Platelet Volume 11.1 fL (9.4-12.4); Monocytes # 0.3 K/mcL (0.0-1.3); Neutrophils # 5.7 K/mcL (1.6-8.9); Platelet Count 103 K/mcL (140-400); Red Blood Count 2.89 M/mcL (3.82-4.97); Red Cell Distribution Width 15.9 % (11.5-14.5); Segmented Neutrophils % 87.2 %
[2018-09-04 01:55] LABS: BUN/Creatinine Ratio 28 (6-26); Blood Urea Nitrogen 15 mg/dL (8-23); Calcium 7.3 mg/dL (8.6-10.3); Carbon Dioxide 29 mEq/L (23-29); Chloride 105 mEq/L (98-107); Glucose 307 mg/dL (70-105); Osmolality,Calculated 300 (280-300); Potassium 2.5 mEq/L (3.5-5.1); Sodium 139 mEq/L (136-145); eGFR For Non-African Americans > 60 (> 60)
[2018-09-04 02:55] LABS: Magnesium 1.3 mg/dL (1.6-2.6)
[2018-09-04] MEDS: Acetaminophen 325 MG TABLET PO PRN ×2 (03:43→14:32)
[2018-09-04] MEDS: *HR* HYDROcodone/Acet 5/325 mg TABLET PO PRN ×2 (05:53→15:53)
[2018-09-04] MEDS: predniSONE 5 MG TABLET PO SCH (08:34)
[2018-09-04] MEDS: Folic Acid 1 MG TABLET PO SCH (08:34)
[2018-09-04] MEDS: Insulin LISPRO 300 UNITS/3 ML VIAL SQ SCH ×4 (08:35→21:44)
[2018-09-04 09:04] LABS: BUN/Creatinine Ratio 32 (6-26); Blood Urea Nitrogen 16 mg/dL (8-23); Calcium 7.5 mg/dL (8.6-10.3); Carbon Dioxide 28 mEq/L (23-29); Chloride 103 mEq/L (98-107); Glucose 308 mg/dL (70-105); Osmolality,Calculated 305 (280-300); Potassium 2.9 mEq/L (3.5-5.1); Sodium 141 mEq/L (136-145); eGFR For Non-African Americans > 60 (> 60)
[2018-09-04] MEDS ORDERED: OXYCODONE 30 MG PO SCH (10:00)
--- NOTE | 2018-09-04 10:00 | Internal Med Progress Note ---
Hospitalist Progress Note - Encounter Date of Encounter: 09/04/18 Time of Encounter: 09:54 - Subjective Interval History: Section seen and examined this morning at bedside. Much more alert and oriented. Complains of pain in her back. Afebrile and hemodynamically stable. Has baseline left leg weakness. - Exam Vitals: Temp Pulse Resp BP Pulse Ox 97.5 F L 63 14 138/72 99 09/04/18 06:52 09/04/18 06:52 09/04/18 06:52 09/04/18 06:52 09/04/18 06:52 Exam: General: In no acute distress. Lt facial sysmetry Respiratory exam: CTAB. no accessory muscle use, rales, rhonchi, wheezes Cardiovascular exam: RRR, +S1, +S2. no murmur, gallop, rubs. GI/Abdominal exam: Non-tender, Non-distended, normal bowel sounds, soft, no peritoneal signs. Extremities exam: no pedal edema, pulses palpable in b/l lower extremities. no calf tenderness Neurological exam: CN II-XII intact, AO X3, Lt leg weakness. Skin exam: sacral decubitus ulcer with necrotic base 8x10 cm. - Assessment and Plan (1) Sacral decubitus ulcer Current Visit: Yes Status: Acute (2) UTI (urinary tract infection) Current Visit: Yes Status: Acute (3) Anemia Current Visit: Yes Status: Acute (4) COPD exacerbation Current Visit: Yes Status: Acute (5) DVT prophylaxis Current Visit: Yes Status: Acute (6) Adrenal insufficiency Current Visit: Yes Status: Acute - Summary of Assessment and Plan Summary of Assessment and Plan: Sacral decubitus ulcer - Wound culture growing GNR - Ct without abscess or osteomyelitis. - c/w empiric antibiotics - Reached out to surgery to evaluate for need for debridement. - pain management UTI - culture growing GNR - on broad spectrum antibiotics COPD exacerbation - c/w Oxygen, duonebs and antibiotics as above. Anemia - Iron studies with iron deficiency. may have component of anemia of chronic disease - stable. No signs of active bleeding Adrenal insufficiency - Home prednisone and florinef restarted - hemodynamically stable Recent stroke - Baseline weaknes on lt leg - able to eat. trach now closing and breathing without difficulty. - PT/OT consult DVT prophylaxis - EPCD's. - Time Spent with Patient Total time spent is greater than 50% in coordination of care (as documented) at patient's floor/unit and/or counseling patient: Internal Medicine: Result - Labs CBC & Chem 7: 09/04/18 00:39 09/04/18 08:20 Labs: Short CBC 09/03/18 09/03/18 09/03/18 Range/Units 09:52 15:46 22:06 WBC (4.3-11.1) K/mcL Hgb 7.8 L 8.2 L 9.5 L (11.5-15.4) g/dL Hct 24.6 L 25.2 L 30.1 L (35.3-44.9) % Plt Count (140-400) K/mcL Neutrophils # (1.6-8.9) K/mcL 09/04/18 Range/Units 00:39 WBC 6.6 (4.3-11.1) K/mcL Hgb 7.8 L D (11.5-15.4) g/dL Hct 24.3 L (35.3-44.9) % Plt Count 103 L (140-400) K/mcL Neutrophils # 5.7 (1.6-8.9) K/mcL BMP 09/04/18 09/04/18 00:39 08:20 Sodium 139 141 Potassium 2.5 L* 2.9 L Chloride 105 103 Carbon Dioxide 29 28 BUN 15 16 Creatinine 0.53 L 0.50 L Glucose 307 H 308 H Calcium 7.3 L 7.5 L - ABG Interpretation ABG results: PT/INR, D-dimer PT 12.5 Seconds (9.4-12.1) H 09/02/18 21:52 - Impressions Impressions Pelvis CT 09/02/18 21:40 IMPRESSION: 1. Deep soft tissue ulcer overlying the inferior left sacrum and to the left of the coccyx. No evidence of abscess. No CT evidence of osteomyelitis at this time. 2. Severe distention of the urinary bladder with distal hydroureter. 3. Mild haziness of the presacral fat, which could be related to inflammation in the rectum versus reactive to inflammation at the sacral decubitus ulcer. D/ / 09/03/2018 07:03:54 Ruchi Vanegas / cindi Interpreting Provider: Ruchi Vanegas Consult Discharge Plan - Plan Referrals: NONE,PCP [Primary Care Provider] - (1) Sacral decubitus ulcer Qualifiers: Pressure injury stage: unstageable Qualified Code(s): L89.150 - Pressure ulcer of sacral region, unstageable (2) UTI (urinary tract infection) Qualifiers: Urinary tract infection type: site unspecified Hematuria presence: without hematuria Qualified Code(s): N39.0 - Urinary tract infection, site not specified (3) Anemia Qualifiers: Anemia type: unspecified type Qualified Code(s): D64.9 - Anemia, unspecified
[2018-09-04 10:13] LABS: Hematocrit 23.6 % (35.3-44.9); Hemoglobin 7.8 g/dL (11.5-15.4)
[2018-09-04] MEDS ORDERED: *HR* OxyCODONE ER (12 HR) 10 MG TABLET PO SCH (11:00)
[2018-09-04] MEDS ORDERED: *HR* OxyCODONE ER (12 HR) 10 MG TABLET PO ONE (11:37)
[2018-09-04 16:07] LABS: Hematocrit 29.9 % (35.3-44.9); Hemoglobin 9.6 g/dL (11.5-15.4)
[2018-09-04] MEDS: *HR* OxyCODONE ER (12 HR) 10 MG TABLET PO SCH (18:09)
[2018-09-04] MEDS: Primidone 50 MG TABLET PO SCH (21:44)
[2018-09-04] MEDS: Mirtazapine 15 MG TABLET PO SCH (21:44)
[2018-09-04] MEDS: Insulin DETEMIR 100 UNIT/ML X5UNITS SQ SCH (21:44)
[2018-09-04] MEDS: clonazePAM 1 MG TABLET PO PRN (21:52)
[2018-09-04 21:53] LABS: Hematocrit 26.4 % (35.3-44.9); Hemoglobin 8.6 g/dL (11.5-15.4)
[2018-09-05] MEDS: *HR* HYDROcodone/Acet 5/325 mg TABLET PO PRN ×3 (00:04→20:15)
[2018-09-05] MEDS: Cefepime HCl 2,000 MG in Water for inj. (sterile) 20 ML 20 ML IVP SCH ×2 (00:46→10:07)
[2018-09-05] MEDS: MetroNIDAZOLE 500 MG/100 ML 500 MG/100 ML BAG IVPB SCH ×3 (00:47→16:24)
[2018-09-05] MEDS: *HR* OxyCODONE ER (12 HR) 10 MG TABLET PO SCH ×2 (06:16→17:35)
[2018-09-05 06:42] LABS: Hematocrit 23.5 % (35.3-44.9); Hemoglobin 7.5 g/dL (11.5-15.4)
[2018-09-05 07:01] LABS: BUN/Creatinine Ratio 20 (6-26); Blood Urea Nitrogen 11 mg/dL (8-23); Carbon Dioxide 27 mEq/L (23-29); Chloride 106 mEq/L (98-107); Glucose 294 mg/dL (70-105); Osmolality,Calculated 298 (280-300); Potassium 2.8 mEq/L (3.5-5.1); Sodium 139 mEq/L (136-145); eGFR For Non-African Americans > 60 (> 60)
--- NOTE | 2018-09-05 09:16 | Acute Care Surgery Event Note ---
Date of Encounter: 09/05/18 Time of Encounter: 09:00 Pt seen and examined by Dr. Dockery in formal consultation on 09/03/18. Note will follow. No surgical intervention recommended at this time. Orders for Santyl collagenase applied to wound are given. Pt is to f/u with Dr. Dockery in the wound care center upon DC.
--- NOTE | 2018-09-05 09:37 | Internal Med Progress Note ---
Hospitalist Progress Note - Encounter Date of Encounter: 09/05/18 Time of Encounter: 09:37 - Subjective Interval History: Patient seen and examined this morning and visit. No acute overnight events. Complaints of back pain. Denies any fevers chills nausea vomiting or diarrhea. Denies any abdominal pain. - Exam Vitals: Temp Pulse Resp BP Pulse Ox 98.2 F 89 15 155/76 99 09/05/18 06:18 09/05/18 06:18 09/05/18 06:18 09/05/18 06:18 09/05/18 06:18 Exam: General: In no acute distress. Lt facial sysmetry Respiratory exam: CTAB. no accessory muscle use, rales, rhonchi, wheezes Cardiovascular exam: RRR, +S1, +S2. no murmur, gallop, rubs. GI/Abdominal exam: Non-tender, Non-distended, normal bowel sounds, soft, no peritoneal signs. Extremities exam: no pedal edema, pulses palpable in b/l lower extremities. no calf tenderness Neurological exam: CN II-XII intact, AO X3, Lt leg weakness. Skin exam: sacral decubitus with dressing - Assessment and Plan (1) Sacral decubitus ulcer Current Visit: Yes Status: Acute (2) UTI (urinary tract infection) Current Visit: Yes Status: Acute (3) Anemia Current Visit: Yes Status: Acute (4) COPD exacerbation Current Visit: Yes Status: Acute (5) DVT prophylaxis Current Visit: Yes Status: Acute (6) Adrenal insufficiency Current Visit: Yes Status: Acute - Summary of Assessment and Plan Summary of Assessment and Plan: Sacral decubitus ulcer - Wound culture and Urine growing ECOli. - Ct without abscess or osteomyelitis. - Will switch to ceftriaxone - No need for debridement per surgery. To f/o outpatient - pain management UTI - as above COPD exacerbation - c/w Oxygen, duonebs and antibiotics as above. Anemia - Iron studies with iron deficiency. may have component of anemia of chronic disease - stable. No signs of active bleeding - f/u outpatient Adrenal insufficiency - c/w Home prednisone and florinef - hemodynamically stable Hyperkalemia - replete potassium Recent stroke - Baseline weakness on lt leg - able to eat. trach now closing and PEG closed. breathing without difficulty. - PT/OT recommended SNF. SW working on placement. DVT prophylaxis - EPCD's. - Time Spent with Patient Total time spent is greater than 50% in coordination of care (as documented) at patient's floor/unit and/or counseling patient: Internal Medicine: Result - Labs CBC & Chem 7: 09/05/18 10:42 09/05/18 06:15 Labs: Short CBC 09/04/18 09/04/18 09/04/18 Range/Units 09:48 15:51 21:42 Hgb 7.8 L 9.6 L D 8.6 L (11.5-15.4) g/dL Hct 23.6 L 29.9 L 26.4 L (35.3-44.9) % 09/05/18 Range/Units 06:15 Hgb 7.5 L (11.5-15.4) g/dL Hct 23.5 L (35.3-44.9) % BMP 09/05/18 06:15 Sodium 139 Potassium 2.8 L Chloride 106 Carbon Dioxide 27 BUN 11 Creatinine 0.54 L Glucose 294 H Calcium 7.0 L - ABG Interpretation ABG results: PT/INR, D-dimer PT 12.5 Seconds (9.4-12.1) H 09/02/18 21:52 Consult Discharge Plan - Plan Referrals: NONE,PCP [Primary Care Provider] - (1) Sacral decubitus ulcer Qualifiers: Pressure injury stage: unstageable Qualified Code(s): L89.150 - Pressure ulcer of sacral region, unstageable (2) UTI (urinary tract infection) Qualifiers: Urinary tract infection type: site unspecified Hematuria presence: without hematuria Qualified Code(s): N39.0 - Urinary tract infection, site not specified (3) Anemia Qualifiers: Anemia type: unspecified type Qualified Code(s): D64.9 - Anemia, unspecified
[2018-09-05] MEDS: Insulin LISPRO 300 UNITS/3 ML VIAL SQ SCH ×4 (10:08→20:14)
[2018-09-05] MEDS: predniSONE 5 MG TABLET PO SCH (10:09)
[2018-09-05] MEDS: Folic Acid 1 MG TABLET PO SCH (10:09)
[2018-09-05] MEDS: clonazePAM 1 MG TABLET PO PRN (10:33)
[2018-09-05 11:05] LABS: Hematocrit 28.9 % (35.3-44.9)
[2018-09-05 11:18] LABS: Hemoglobin 9.2 g/dL (11.5-15.4)
[2018-09-05] MEDS ORDERED: Ibuprofen 400 MG TABLET PO ONE (12:12)
[2018-09-05] MEDS: cefTRIAXone 1,000 MG in Water for inj. (sterile) 20 ML 10 ML IVP SCH (12:32)
[2018-09-05] MEDS: 0.9 % Sodium Chloride w KCl 40 MEQ/1,000 ML MLS IVC SCH (12:33)
[2018-09-05] MEDS: Ipratropium/Albuterol Neb 3 ML IH PRN (13:37)
[2018-09-05 16:27] LABS: Hematocrit 23.8 % (35.3-44.9)
[2018-09-05 16:28] LABS: Hemoglobin 7.6 g/dL (11.5-15.4)
--- NOTE | 2018-09-05 16:58 | General Surgery Consult Note ---
Date of Encounter: 09/04/18 Time of Encounter: 10:00 Assessment and Plan (1) Sacral decubitus ulcer Current Visit: Yes Status: Acute 63F with multiple comorbidities including CVA, CAD/CHF, COPD, DM, adrenal insufficiency requiring steroids now with chronic pressure ulcer; the unfortunate aspect of her ulcer is that while it may be possible to heal it, she has a number of factors, including her comorbidities and her steroid use, that slow the progression of healing; Diet: increase the protein in the diet; ensure shakes with meals, at least TID medical conditions; optimize comorbidities Endocrine: glucose < 150; wean steroids to lowest tolerable level (unfortunately the steroid use may not be adjustable) activity: PT/OT; q2hr turns; limit time on sacrum wound: santyl applied daily; nickel thick on allevyn pad; clean with soap and water and dry prior to application of santyl and allevyn pad nutrition labs: albumin, prealbumin no need or surgical debridement at present; please follow up in my wound clinic 2 weeks after discharge general surgery will sign off; please follow up with any new questions or concerns Qualifiers: Pressure injury stage: unstageable Qualified Code(s): L89.150 - Pressure ulcer of sacral region, unstageable History of Present Illness Consult date: 09/04/18 Reason for consult: other (sacral pressure ulcer) History of present illness: 63F PMH significant for COPD, CAD/CHF, DM CVA, HLD, HTN who now for the past four months has a sacral pressure ulcer that is progressing in size and becoming malodorous. Patient had a long and complicated hospital course for over the last few months since June of this year that involved pneumonia, respiratory failure and a stroke resulting in paresis of her left side. She was in critical condition eventually underwent tracheostomy and PEG tub placement. During her debilitated state she developed a pressure ulcer along her sacrum. Besides her pulmonary and cardiac function as well as her DM, she was reportedly on steroid replacement 2/2 bilateral adrenalectomies. I was consulted for further management recommendations. A CT scan was obtained which was reviewed by me which demonstrated findings consistent with the pressure ulcer and no evidence of an abscess or osteomyelitis. Past Med Surg Social Fam HX - Past Medical History Medical history: asthma, CHF, COPD, CVA, diabetes, fibromyalgia, glaucoma, hyperlipidemia, hypertension, thyroid disease Additional medical history: Stg 3 buttock wound-now unstagable Psychiatric history: anxiety, panic disorder - Past Surgical History Surgical History: angioplasty/stent, hysterectomy Additional surgical history: adrenal glands removed. trach and trach removal. cardiac stents x2 - Social History Smoking Status: Current every day smoker Smokeless Tobacco Status: No Alcohol use: none Drug use: none - Family History Mother History Unknown: Yes Father History Unknown: Yes Medications and Allergies Atorvastatin Calcium [Lipitor] 80 mg PO HS 03/09/15 [History] Clopidogrel Bisulfate [Plavix] 75 mg PO DAILY 03/09/15 [History] Furosemide [Lasix] 20 mg PO DAILY PRN 03/09/15 [History] Levothyroxine [Synthroid] 50 mcg PO 0630 03/09/15 [History] OxyCODONE ER (12 HR) [Oxycontin] 30 mg PO Q12H 03/09/15 [History] Potassium Chloride [K-Tab ER] 10 meq PO BID 03/09/15 [History] Propranolol [Inderal] 10 mg PO BID 03/09/15 [History] Docusate Sodium [Colace] 200 mg PO BID 09/03/18 [History] Ergocalciferol (VITAMIN D2) [Vitamin D2] 50,000 unit PO FR 09/03/18 [History] Fludrocortisone Acetate [Florinef] 0.1 mg PO DAILY 09/03/18 [History] Folic Acid 1 mg PO DAILY 09/03/18 [History] Ipratropium/Albuterol Neb [Duoneb] 3 ml IH Q6HR PRN 09/03/18 [History] Mirtazapine [Remeron] 15 mg PO HS 09/03/18 [History] Pantoprazole Sodium [Protonix] 40 mg PO DAILY 09/03/18 [History] PredniSONE [Cm] 5 mg PO DAILY 09/03/18 [History] Primidone [Mysoline] 150 mg PO HS 09/03/18 [History] clonazePAM [Klonopin] 1 mg PO TID PRN 09/03/18 [History] hydrOXYzine pamoate [HydrOXYzine Pamoate] 25 mg PO TID PRN 09/03/18 [History] Allergy/AdvReac Type Severity Reaction Status Date / Time Amoxicillin Allergy Hives Verified 09/02/18 19:58 cetirizine [From Zyrtec] Allergy Hypertensio Verified 09/02/18 19:58 n Erythromycin Base Allergy Hives Verified 09/02/18 19:58 levofloxacin [From Levaquin] Allergy See Verified 09/02/18 19:58 Comments naproxen Allergy Rash Verified 09/02/18 19:58 Penicillins [PCN] Allergy Hives Verified 09/02/18 19:58 tramadol [From Ultram] Allergy Rash Verified 09/02/18 19:58 Review of Systems All systems PM: 12 point ROS negative besides HPI findings General Surgery Exam Initial Vital Signs Temp Pulse Resp BP Pulse Ox 98.8 F 100 24 142/63 100 09/02/18 20:00 09/02/18 20:00 09/02/18 20:00 09/02/18 20:00 09/02/18 20:00 - General physical appearance no distress, chronically ill - Eyes normal ocular movement - Neck no lymphadectomy - Respiratory normal expansion, normal respiratory effort - Cardiovascular Cardiovascular exam: Present: RRR - Abdomen Abdomen general surgery: Present: soft - Integumentary Integumentary general surgery: Present: warm and dry - Neurologic Present: CN 2-12 grossly intact - Psychiatric Psychiatric general surgery: Present: A&Ox3 Exam Initial Vital Signs Temp Pulse Resp BP Pulse Ox 98.8 F 100 24 142/63 100 09/02/18 20:00 09/02/18 20:00 09/02/18 20:00 09/02/18 20:00 09/02/18 20:00 Results - Labs 09/05/18 15:59 09/05/18 06:15 Abnormal lab results RBC 2.89 M/mcL (3.82-4.97) L 09/04/18 00:39 Hgb 7.6 g/dL (11.5-15.4) L D 09/05/18 15:59 Hct 23.8 % (35.3-44.9) L 09/05/18 15:59 MCH 27.0 pg (28.0-33.3) L 09/04/18 00:39 MCHC 31.2 g/dL (31.6-35.5) L 09/03/18 03:03 RDW 15.9 % (11.5-14.5) H 09/04/18 00:39 Plt Count 103 K/mcL (140-400) L 09/04/18 00:39 PT 12.5 Seconds (9.4-12.1) H 09/02/18 21:52 Sodium 135 mEq/L (136-145) L 09/02/18 20:50 Potassium 2.8 mEq/L (3.5-5.1) L 09/05/18 06:15 0.54 mg/dL (0.60-1.20) L 09/05/18 06:15 32 (6-26) H 09/04/18 08:20 Glucose 294 mg/dL (70-105) H 09/05/18 06:15 POC Glucose 114 mg/dL (70-99) H 09/05/18 15:55 7.4 % (-5.6) H 09/03/18 03:03 305 (280-300) H 09/04/18 08:20 Calcium 7.0 mg/dL (8.6-10.3) L 09/05/18 06:15 Magnesium 1.3 mg/dL (1.6-2.6) L 09/04/18 00:39 Iron < 10 mcg/dL (50-170) L 09/03/18 03:03 112 mg/dL (203-362) L 09/03/18 03:03 110 Units/L (34-104) H 09/02/18 20:50 5.0 g/dL (6.4-8.9) L 09/03/18 03:03 2.5 g/dL (3.5-5.7) L 09/03/18 03:03 1.0 (1.1-2.2) L 09/03/18 03:03 Cloudy (Clear) A 09/02/18 22:22 Ur Specific [place] 1.008 (1.010-1.025) L 09/02/18 22:22 100 mg/dL (Normal) H 09/02/18 22:22 Small (Negative) H 09/02/18 22:22 Positive (Negative) A 09/02/18 22:22 Ur Leukocyte Esterase Large (Negative) H 09/02/18 22:22 3-5 per hpf (0-3) H 09/02/18 22:22 TNTC per hpf (0-3) H 09/02/18 22:22 Ur Squamous Epith Cells Moderate per lpf (None-Few) H 09/02/18 22:22 Many per hpf (None-Few) H 09/02/18 22:22 Ur Culture Indicated? YES (NO) A 09/02/18 22:22 Diabetes panel 09/05/18 Range/Units 06:15 Sodium 139 (136-145) mEq/L Potassium 2.8 L (3.5-5.1) mEq/L Chloride 106 (98-107) mEq/L Carbon Dioxide 27 (23-29) mEq/L BUN 11 (8-23) mg/dL Creatinine 0.54 L (0.60-1.20) mg/dL Glucose 294 H (70-105) mg/dL Calcium 7.0 L (8.6-10.3) mg/dL Calcium panel 09/05/18 Range/Units 06:15 Calcium 7.0 L (8.6-10.3) mg/dL Pituitary panel 09/05/18 Range/Units 06:15 Sodium 139 (136-145) mEq/L Potassium 2.8 L (3.5-5.1) mEq/L Chloride 106 (98-107) mEq/L Carbon Dioxide 27 (23-29) mEq/L BUN 11 (8-23) mg/dL Creatinine 0.54 L (0.60-1.20) mg/dL Glucose 294 H (70-105) mg/dL Calcium 7.0 L (8.6-10.3) mg/dL Adrenal panel 09/05/18 Range/Units 06:15 Sodium 139 (136-145) mEq/L Potassium 2.8 L (3.5-5.1) mEq/L Chloride 106 (98-107) mEq/L Carbon Dioxide 27 (23-29) mEq/L BUN 11 (8-23) mg/dL Creatinine 0.54 L (0.60-1.20) mg/dL Glucose 294 H (70-105) mg/dL Calcium 7.0 L (8.6-10.3) mg/dL All other labs normal. Consult Discharge Plan - Plan Referrals: NONE,PCP [Primary Care Provider] -
[2018-09-05] MEDS: Primidone 50 MG TABLET PO SCH (20:14)
[2018-09-05] MEDS: Insulin DETEMIR 100 UNIT/ML X5UNITS SQ SCH (20:15)
[2018-09-05] MEDS: Mirtazapine 15 MG TABLET PO SCH (20:15)
[2018-09-06] MEDS: metroNIDAZOLE 500 MG TABLET PO SCH ×3 (00:07→17:04)
[2018-09-06] MEDS: 0.9 % Sodium Chloride w KCl 40 MEQ/1,000 ML MLS IVC SCH ×3 (00:07→21:29)
[2018-09-06 03:03] LABS: Hematocrit 22.5 % (35.3-44.9); Hemoglobin 7.2 g/dL (11.5-15.4)
[2018-09-06 03:16] LABS: BUN/Creatinine Ratio 20 (6-26); Blood Urea Nitrogen 10 mg/dL (8-23); Calcium 6.4 mg/dL (8.6-10.3); Carbon Dioxide 26 mEq/L (23-29); Chloride 108 mEq/L (98-107); Glucose 187 mg/dL (70-105); Osmolality,Calculated 290 (280-300); Potassium 3.4 mEq/L (3.5-5.1); Sodium 138 mEq/L (136-145); eGFR For Non-African Americans > 60 (> 60)
[2018-09-06] MEDS: *HR* OxyCODONE ER (12 HR) 10 MG TABLET PO SCH ×2 (05:43→17:04)
[2018-09-06] MEDS: cefTRIAXone 1,000 MG in Water for inj. (sterile) 20 ML 10 ML IVP SCH (07:54)
[2018-09-06] MEDS: predniSONE 5 MG TABLET PO SCH (07:54)
[2018-09-06] MEDS: Folic Acid 1 MG TABLET PO SCH (07:54)
[2018-09-06] MEDS: *HR* HYDROcodone/Acet 5/325 mg TABLET PO PRN ×3 (08:03→21:28)
[2018-09-06] MEDS: Insulin LISPRO 300 UNITS/3 ML VIAL SQ SCH ×4 (08:16→21:02)
--- NOTE | 2018-09-06 11:29 | Internal Med Progress Note ---
Hospitalist Progress Note - Encounter Date of Encounter: 09/06/18 Time of Encounter: 10:28 - Subjective Interval History: Patient seen and examined this morning at bedside. No acute overnight events. Denies new complaints. Pain control. Wants to go home. Afebrile. Hemodynamically stable. - Exam Vitals: Temp Pulse Resp BP Pulse Ox 97.4 F L 90 16 150/81 99 09/06/18 10:36 09/06/18 10:36 09/06/18 10:36 09/06/18 10:36 09/06/18 10:36 Exam: General: In no acute distress. Respiratory exam: CTAB. no accessory muscle use, rales, rhonchi, wheezes Cardiovascular exam: RRR, +S1, +S2. no murmur, gallop, rubs. GI/Abdominal exam: Non-tender, Non-distended, normal bowel sounds, soft, no peritoneal signs. Extremities exam: no pedal edema, pulses palpable in b/l lower extremities. no calf tenderness Neurological exam: CN II-XII intact, AO X3, Lt leg weakness. Skin exam: sacral decubitus with dressing - Assessment and Plan (1) Sacral decubitus ulcer Current Visit: Yes Status: Acute (2) UTI (urinary tract infection) Current Visit: Yes Status: Acute (3) Anemia Current Visit: Yes Status: Acute (4) COPD exacerbation Current Visit: Yes Status: Acute (5) DVT prophylaxis Current Visit: Yes Status: Acute (6) Adrenal insufficiency Current Visit: Yes Status: Acute - Summary of Assessment and Plan Summary of Assessment and Plan: Sacral decubitus ulcer - Wound culture and Urine growing ECOli. - Ct without abscess or osteomyelitis. - c/w ceftriaxone based on sensitivity - No need for debridement per surgery. To f/o outpatient - pain management, nutritional support - Will dc for 10 day course of antibiotics on dc when placement available. DM - new - not on meds - c/w insulin SSI and accuchecks for now. A1c 7.4 - Will start metformin on Discharge if patient agrees UTI - as above COPD exacerbation - c/w Oxygen, duonebs and antibiotics as above. Anemia - Iron studies with iron deficiency. may have component of anemia of chronic disease - Start iron supplements. Obtain ferritin, B12 and Folate. - stable. No signs of active bleeding - f/u outpatient Adrenal insufficiency - c/w Home prednisone and florinef - hemodynamically stable Hyperkalemia - replete potassium Recent stroke - Baseline weakness on lt leg - able to eat. trach now closing and PEG closed. breathing without difficulty. - PT/OT recommended SNF. awaiting placement. DVT prophylaxis - EPCD's. - Time Spent with Patient Total time spent is greater than 50% in coordination of care (as documented) at patient's floor/unit and/or counseling patient: Internal Medicine: Result - Labs CBC & Chem 7: 09/06/18 01:44 09/06/18 01:44 Labs: Short CBC 09/05/18 09/06/18 Range/Units 15:59 01:44 Hgb 7.6 L D 7.2 L (11.5-15.4) g/dL Hct 23.8 L 22.5 L (35.3-44.9) % BMP 09/06/18 01:44 Sodium 138 Potassium 3.4 L Chloride 108 H Carbon Dioxide 26 BUN 10 Creatinine 0.50 L Glucose 187 H Calcium 6.4 L - ABG Interpretation ABG results: PT/INR, D-dimer PT 12.5 Seconds (9.4-12.1) H 09/02/18 21:52 Consult Discharge Plan - Plan Referrals: NONE,PCP [Primary Care Provider] - _ (1) Sacral decubitus ulcer Qualifiers: Pressure injury stage: unstageable Qualified Code(s): L89.150 - Pressure ulcer of sacral region, unstageable (2) UTI (urinary tract infection) Qualifiers: Urinary tract infection type: site unspecified Hematuria presence: without hematuria Qualified Code(s): N39.0 - Urinary tract infection, site not specified (3) Anemia Qualifiers: Anemia type: unspecified type Qualified Code(s): D64.9 - Anemia, unspecified
[2018-09-06] MEDS: Insulin DETEMIR 100 UNIT/ML X5UNITS SQ SCH (21:03)
[2018-09-06] MEDS: Primidone 50 MG TABLET PO SCH (21:29)
[2018-09-06] MEDS: Mirtazapine 15 MG TABLET PO SCH (21:29)
[2018-09-06] MEDS: clonazePAM 1 MG TABLET PO PRN (21:29)
[2018-09-07] MEDS: metroNIDAZOLE 500 MG TABLET PO SCH ×2 (00:40→08:16)
[2018-09-07 05:30] LABS: Hematocrit 24.6 % (35.3-44.9); Hemoglobin 7.7 g/dL (11.5-15.4)
[2018-09-07 05:52] LABS: BUN/Creatinine Ratio 8 (6-26); Blood Urea Nitrogen 3 mg/dL (8-23); Calcium 6.7 mg/dL (8.6-10.3); Carbon Dioxide 26 mEq/L (23-29); Chloride 105 mEq/L (98-107); Glucose 120 mg/dL (70-105); Osmolality,Calculated 290 (280-300); Potassium 3.6 mEq/L (3.5-5.1); Sodium 141 mEq/L (136-145); eGFR For Non-African Americans > 60 (> 60)
[2018-09-07] MEDS: *HR* OxyCODONE ER (12 HR) 10 MG TABLET PO SCH ×2 (05:56→17:07)
[2018-09-07 06:09] LABS: Ferritin 108 ng/mL (10-120)
[2018-09-07] MEDS: 0.9 % Sodium Chloride w KCl 40 MEQ/1,000 ML MLS IVC SCH ×2 (07:19→18:52)
[2018-09-07] MEDS: Insulin LISPRO 300 UNITS/3 ML VIAL SQ SCH ×4 (08:13→20:14)
[2018-09-07] MEDS: Folic Acid 1 MG TABLET PO SCH (08:16)
[2018-09-07] MEDS: predniSONE 5 MG TABLET PO SCH (08:16)
[2018-09-07] MEDS: cefTRIAXone 1,000 MG in Water for inj. (sterile) 20 ML 10 ML IVP SCH (08:18)
[2018-09-07] MEDS: *HR* HYDROcodone/Acet 5/325 mg TABLET PO PRN ×3 (08:29→23:18)
[2018-09-07] MEDS: clonazePAM 1 MG TABLET PO PRN ×3 (08:29→23:18)
[2018-09-07] MEDS: Doxycycline 100 MG in 0.9 % Sodium Chloride Mini Bag 100 ML IVPB SCH ×2 (13:50→17:07)
[2018-09-07] MEDS: Ipratropium/Albuterol Neb 3 ML IH PRN (14:27)
--- NOTE | 2018-09-07 15:49 | Internal Med Progress Note ---
Hospitalist Progress Note - Encounter Date of Encounter: 09/07/18 Time of Encounter: 11:02 - Subjective Interval History: Patient seen and examined this morning at bedside. No acute overnight events. Pain is controlled. Denies any diarrhea or blood in stool. Denies any diarrhea. Denies any chest pain or difficulty breathing. - Exam Vitals: Temp Pulse Resp BP Pulse Ox 98.0 F 84 14 157/77 100 09/07/18 14:59 09/07/18 14:59 09/07/18 14:59 09/07/18 14:59 09/07/18 14:59 Exam: General: In no acute distress. Respiratory exam: CTAB. no accessory muscle use, rales, rhonchi, wheezes Cardiovascular exam: RRR, +S1, +S2. no murmur, gallop, rubs. GI/Abdominal exam: Non-tender, Non-distended, normal bowel sounds, soft, no peritoneal signs. Extremities exam: no pedal edema, pulses palpable in b/l lower extremities. no calf tenderness Neurological exam: CN II-XII intact, AO X3, Lt leg weakness Skin exam: sacral decubitus with dressing - Assessment and Plan (1) Sacral decubitus ulcer Current Visit: Yes Status: Acute (2) UTI (urinary tract infection) Current Visit: Yes Status: Acute (3) Anemia Current Visit: Yes Status: Acute (4) COPD exacerbation Current Visit: Yes Status: Acute (5) DVT prophylaxis Current Visit: Yes Status: Acute (6) Adrenal insufficiency Current Visit: Yes Status: Acute - Summary of Assessment and Plan Summary of Assessment and Plan: Sacral decubitus ulcer - Wound culture and Urine growing ECOli. Now with staph aureus. - Ct without abscess or osteomyelitis. - c/w ceftriaxone. Will add doxycycline for staph coverage - No need for debridement per surgery. c/w wound care. To f/o outpatient - pain management, nutritional support - Will dc for 10 day course of antibiotics - awaiting placement. DM - spoke with eloina and patient. known. On insulin at home which patient take herself - c/w insulin SSI and accuchecks for now. A1c 7.4 - Will start metformin on Discharge UTI - antibiotics as above - c/w paez to promote wound healing. COPD exacerbation - c/w Oxygen, duonebs and antibiotics as above. Anemia - Iron studies with iron deficiency. may have component of anemia of chronic disease - Start iron supplements. - stable. No signs of active bleeding. Stool occult negative initially. Hb stable. will repeat stool occult - f/u outpatient with GI Adrenal insufficiency - c/w Home prednisone and florinef - hemodynamically stable Hyperkalemia - replete potassium Recent stroke - Baseline weakness on lt leg - able to eat. trach now closing and PEG closed. breathing without difficulty. - PT/OT recommended SNF. awaiting placement. DVT prophylaxis - EPCD's. - Time Spent with Patient Total time spent is greater than 50% in coordination of care (as documented) at patient's floor/unit and/or counseling patient: Internal Medicine: Result - Labs CBC & Chem 7: 09/07/18 04:43 09/07/18 04:43 Labs: Short CBC 09/07/18 Range/Units 04:43 Hgb 7.7 L (11.5-15.4) g/dL Hct 24.6 L (35.3-44.9) % BMP 09/07/18 04:43 Sodium 141 Potassium 3.6 Chloride 105 Carbon Dioxide 26 BUN 3 L Creatinine 0.36 L Glucose 120 H Calcium 6.7 L - ABG Interpretation ABG results: PT/INR, D-dimer PT 12.5 Seconds (9.4-12.1) H 09/02/18 21:52 Consult Discharge Plan - Plan Referrals: NONE,PCP [Primary Care Provider] - (1) Sacral decubitus ulcer Qualifiers: Pressure injury stage: unstageable Qualified Code(s): L89.150 - Pressure ulcer of sacral region, unstageable (2) UTI (urinary tract infection) Qualifiers: Urinary tract infection type: site unspecified Hematuria presence: without hematuria Qualified Code(s): N39.0 - Urinary tract infection, site not specified (3) Anemia Qualifiers: Anemia type: unspecified type Qualified Code(s): D64.9 - Anemia, unspecified
[2018-09-07] MEDS: Primidone 50 MG TABLET PO SCH (19:55)
[2018-09-07] MEDS: Acetaminophen 325 MG TABLET PO PRN (19:55)
[2018-09-07] MEDS: Mirtazapine 15 MG TABLET PO SCH (19:55)
[2018-09-08] MEDS: 0.9 % Sodium Chloride w KCl 40 MEQ/1,000 ML MLS IVC SCH ×2 (00:15→10:15)
[2018-09-08 02:05] LABS: Hematocrit 24.5 % (35.3-44.9); Hemoglobin 7.7 g/dL (11.5-15.4)
[2018-09-08 02:24] LABS: BUN/Creatinine Ratio 26 (6-26); Blood Urea Nitrogen 10 mg/dL (8-23); Calcium 7.1 mg/dL (8.6-10.3); Carbon Dioxide 27 mEq/L (23-29); Chloride 107 mEq/L (98-107); Glucose 164 mg/dL (70-105); Osmolality,Calculated 295 (280-300); Potassium 3.6 mEq/L (3.5-5.1); Sodium 141 mEq/L (136-145); eGFR For Non-African Americans > 60 (> 60)
[2018-09-08] MEDS: Doxycycline 100 MG in 0.9 % Sodium Chloride Mini Bag 100 ML IVPB SCH (05:36)
[2018-09-08] MEDS: *HR* OxyCODONE ER (12 HR) 10 MG TABLET PO SCH ×2 (05:37→17:24)
[2018-09-08] MEDS: Ipratropium/Albuterol Neb 3 ML IH PRN (06:13)
[2018-09-08] MEDS: *HR* HYDROcodone/Acet 5/325 mg TABLET PO PRN ×3 (06:46→20:59)
[2018-09-08] MEDS: Folic Acid 1 MG TABLET PO SCH (07:20)
[2018-09-08] MEDS: predniSONE 5 MG TABLET PO SCH (07:21)
[2018-09-08] MEDS: Insulin LISPRO 300 UNITS/3 ML VIAL SQ SCH ×4 (07:30→21:01)
[2018-09-08] MEDS: cefTRIAXone 1,000 MG in Water for inj. (sterile) 20 ML 10 ML IVP SCH (08:00)
--- NOTE | 2018-09-08 10:27 | Internal Med Progress Note ---
Hospitalist Progress Note - Encounter Date of Encounter: 09/08/18 Time of Encounter: 08:25 - Subjective Interval History: Patient seen and examined this morning at bedside. No acute overnight events. Back pain controlled. Denies new complaints. Denies any abdominal pain nausea vomiting or diarrhea. Denies any hellen blood in stool. Denies fevers chills - Exam Vitals: Temp Pulse Resp BP Pulse Ox 98.2 F 95 14 143/80 97 09/08/18 10:11 09/08/18 10:11 09/08/18 10:11 09/08/18 10:11 09/08/18 10:11 Exam: General: In no acute distress. Respiratory exam: CTAB. no accessory muscle use, rales, rhonchi, wheezes Cardiovascular exam: RRR, +S1, +S2. no murmur, gallop, rubs. GI/Abdominal exam: Non-tender, Non-distended, normal bowel sounds, soft, no peritoneal signs. Extremities exam: no pedal edema, pulses palpable in b/l lower extremities. no calf tenderness Neurological exam: CN II-XII intact, AO X3, Lt leg weakness Skin exam: sacral decubitus with dressing - Assessment and Plan (1) Sacral decubitus ulcer Current Visit: Yes Status: Acute (2) UTI (urinary tract infection) Current Visit: Yes Status: Acute (3) Anemia Current Visit: Yes Status: Acute (4) COPD exacerbation Current Visit: Yes Status: Acute (5) DVT prophylaxis Current Visit: Yes Status: Acute (6) Adrenal insufficiency Current Visit: Yes Status: Acute - Summary of Assessment and Plan Summary of Assessment and Plan: Sacral decubitus ulcer - Wound culture and Urine growing ECOli. Now with staph aureus. - Ct without abscess or osteomyelitis. - Switch to omnicef and doxycycline PO. To do 10 day course of antibiotics - No need for debridement per surgery. c/w wound care. To f/o outpatient - pain management, nutritional support DM - spoke with eloina and patient. known. On insulin at home which patient take herself - c/w insulin SSI and accuchecks for now. A1c 7.4 - Will start metformin on Discharge UTI - antibiotics as above - c/w paez to promote wound healing. COPD exacerbation - c/w Oxygen, duonebs and antibiotics as above. Anemia - Iron studies with iron deficiency. may have component of anemia of chronic disease - Start iron supplements. - Hb stable. No signs of active bleeding. Stool occult negative initially but s econd sample positive. Will consult GI for possible EGD/Colonoscopy - GI consulted. Adrenal insufficiency - c/w Home prednisone and florinef - hemodynamically stable Recent stroke - Baseline weakness on lt leg - able to eat. trach now closing and PEG closed. breathing without difficulty. - PT/OT recommended SNF. awaiting placement. DVT prophylaxis - EPCD's. - Time Spent with Patient Total time spent is greater than 50% in coordination of care (as documented) at patient's floor/unit and/or counseling patient: Internal Medicine: Result - Labs CBC & Chem 7: 09/08/18 01:25 09/08/18 01:25 Labs: Short CBC 09/08/18 Range/Units 01:25 Hgb 7.7 L (11.5-15.4) g/dL Hct 24.5 L (35.3-44.9) % BMP 09/08/18 01:25 Sodium 141 Potassium 3.6 Chloride 107 Carbon Dioxide 27 BUN 10 Creatinine 0.39 L Glucose 164 H Calcium 7.1 L - ABG Interpretation ABG results: PT/INR, D-dimer PT 12.5 Seconds (9.4-12.1) H 09/02/18 21:52 Consult Discharge Plan - Plan Referrals: NONE,PCP [Primary Care Provider] - (1) Sacral decubitus ulcer Qualifiers: Pressure injury stage: unstageable Qualified Code(s): L89.150 - Pressure ulcer of sacral region, unstageable (2) UTI (urinary tract infection) Qualifiers: Urinary tract infection type: site unspecified Hematuria presence: without hematuria Qualified Code(s): N39.0 - Urinary tract infection, site not specified (3) Anemia Qualifiers: Anemia type: unspecified type Qualified Code(s): D64.9 - Anemia, unspecified
[2018-09-08] MEDS: clonazePAM 1 MG TABLET PO PRN ×2 (11:30→20:59)
[2018-09-08] MEDS: Cefdinir 300 MG CAPSULE PO SCH ×2 (11:30→21:00)
[2018-09-08] MEDS ORDERED: Ondansetron ODT 4 MG TAB.RAPDIS SL PRN (11:39)
[2018-09-08] MEDS: Primidone 50 MG TABLET PO SCH (20:58)
[2018-09-08] MEDS: Doxycycline 100 MG CAPSULE PO SCH (20:59)
[2018-09-08] MEDS: Mirtazapine 15 MG TABLET PO SCH (21:00)
[2018-09-09 05:10] LABS: Hematocrit 25.9 % (35.3-44.9); Hemoglobin 8.2 g/dL (11.5-15.4); Mean Corpuscular HGB Conc 31.7 g/dL (31.6-35.5); Mean Corpuscular Hemoglobin 27.1 pg (28.0-33.3); Mean Corpuscular Volume 85.5 fL (83.0-100.0); Mean Platelet Volume 10.8 fL (9.4-12.4); Platelet Count 175 K/mcL (140-400); Red Blood Count 3.03 M/mcL (3.82-4.97); Red Cell Distribution Width 17.6 % (11.5-14.5)
[2018-09-09 05:23] LABS: BUN/Creatinine Ratio 23 (6-26); Blood Urea Nitrogen 9 mg/dL (8-23); Calcium 7.3 mg/dL (8.6-10.3); Carbon Dioxide 27 mEq/L (23-29); Chloride 106 mEq/L (98-107); Glucose 129 mg/dL (70-105); Osmolality,Calculated 290 (280-300); Potassium 3.2 mEq/L (3.5-5.1); Sodium 140 mEq/L (136-145); eGFR For Non-African Americans > 60 (> 60)
[2018-09-09] MEDS: *HR* OxyCODONE ER (12 HR) 10 MG TABLET PO SCH ×2 (06:08→17:48)
[2018-09-09] MEDS: *HR* HYDROcodone/Acet 5/325 mg TABLET PO PRN ×3 (07:28→20:31)
[2018-09-09] MEDS: clonazePAM 1 MG TABLET PO PRN ×3 (07:29→20:29)
[2018-09-09] MEDS: Insulin LISPRO 300 UNITS/3 ML VIAL SQ SCH ×4 (07:31→20:32)
[2018-09-09] MEDS: Folic Acid 1 MG TABLET PO SCH (07:31)
[2018-09-09] MEDS: Doxycycline 100 MG CAPSULE PO SCH ×2 (07:31→20:32)
[2018-09-09] MEDS: predniSONE 5 MG TABLET PO SCH (07:32)
[2018-09-09] MEDS: Cefdinir 300 MG CAPSULE PO SCH ×2 (07:32→20:30)
[2018-09-09] MEDS ORDERED: Potassium Chloride 40 MEQ, Lidocaine 1% 2 ML in D5% in Water 500 ML IVPB ONE (10:13)
[2018-09-09] MEDS: Acetaminophen 325 MG TABLET PO PRN (11:45)
--- NOTE | 2018-09-09 12:55 | Internal Med Progress Note ---
Hospitalist Progress Note - Encounter Date of Encounter: 09/09/18 Time of Encounter: 09:00 - Subjective Interval History: Patient denies any pain or discomfort. But she needs pain medication to control the ulcer pain. No fever. Denies dysuria. - Exam Vitals: Temp Pulse Resp BP Pulse Ox 97.8 F 88 15 137/70 96 09/09/18 10:37 09/09/18 10:37 09/09/18 10:37 09/09/18 10:37 09/09/18 10:37 Exam: General: In no acute distress. Respiratory exam: CTAB. no accessory muscle use, rales, rhonchi, wheezes Cardiovascular exam: RRR, +S1, +S2. no murmur, gallop, rubs. GI/Abdominal exam: Non-tender, Non-distended, normal bowel sounds, soft, no peritoneal signs. Extremities exam: no pedal edema, pulses palpable in b/l lower extremities. no calf tenderness Neurological exam: CN II-XII intact, AO X3, Lt leg weakness Skin exam: sacral decubitus with dressing - Assessment and Plan (1) Sacral decubitus ulcer Current Visit: Yes Status: Acute Assessment and Plan: Continue wound care and keep turning patient every 2 hours per protocol - Surgical consult appreciated, no need debridement at this point. - Wound culture shows E Coli and SA, on po doxycycline and cefdinir at this poi nt, per sensitivity. - Patient is generally wheelchair-bound because of previous CVA. (2) UTI (urinary tract infection) Current Visit: Yes Status: Acute Assessment and Plan: Urine culture obtained, shows E Coli. Continue antibiotics cefdinir Cont po hydration. (3) Anemia Current Visit: Yes Status: Acute Assessment and Plan: FOBT positive, GI was counseled. However, patient refused scopes. Patient woul d like to have scopes in [place], where is her home with her . Risks of not doing scopes explained by GI. - Continue follow-up H&H, transfusion as needed. (4) COPD exacerbation Current Visit: Yes Status: Acute Assessment and Plan: No signs of exacerbation. Continue home medications. (5) DVT prophylaxis Current Visit: Yes Status: Acute Assessment and Plan: EPCD's. No heparin because of anemia (6) Adrenal insufficiency Current Visit: Yes Status: Acute Assessment and Plan: Continue home medications. - Time Spent with Patient Total time spent is greater than 50% in coordination of care (as documented) at patient's floor/unit and/or counseling patient: 30 minutes 25 - 35 minutes Plan of Care Discussed with: patient Internal Medicine: Result - Labs CBC & Chem 7: 09/09/18 04:41 09/09/18 04:41 Labs: Short CBC 09/09/18 Range/Units 04:41 WBC 7.5 (4.3-11.1) K/mcL Hgb 8.2 L (11.5-15.4) g/dL Hct 25.9 L (35.3-44.9) % Plt Count 175 D (140-400) K/mcL BMP 09/09/18 04:41 Sodium 140 Potassium 3.2 L Chloride 106 Carbon Dioxide 27 BUN 9 Creatinine 0.39 L Glucose 129 H Calcium 7.3 L - ABG Interpretation ABG results: PT/INR, D-dimer PT 12.5 Seconds (9.4-12.1) H 09/02/18 21:52 Consult Discharge Plan - Plan Referrals: NONE,PCP [Primary Care Provider] - (1) Sacral decubitus ulcer Qualifiers: Pressure injury stage: unstageable Qualified Code(s): L89.150 - Pressure ulcer of sacral region, unstageable (2) UTI (urinary tract infection) Qualifiers: Urinary tract infection type: site unspecified Hematuria presence: without hematuria Qualified Code(s): N39.0 - Urinary tract infection, site not specified (3) Anemia Qualifiers: Anemia type: unspecified type Qualified Code(s): D64.9 - Anemia, unspecified
--- NOTE | 2018-09-09 12:55 | Gastroenterology Consult Note ---
Date of Encounter: 09/09/18 Time of Encounter: 10:50 - Time Spent With Patient Total time spent is greater than 50% in coordination of care (as documented) at patient's floor/unit and/or counseling patient: GI History of Present Illness - Data of Consult Patient: new to practice Consult date: 09/09/18 Requesting Physician: Dana Alejandro MD - Consult Narrative Reason for consult: Possible GI bleed History of present illness: Ms. Rosenthal is a 63 year old female with PMHx of CHF, COPD, CVA, DM, fibromyalgia, HLD, HTN who was brought in by her daughter for concerns of a foul smelling and worsening sacral decubitus ulcer. Patient was recently moved to her daughter's house in [place], [place] from [place]. Patient had a long and complicated hospital course for over the last few months since June of this year. She was hospitalized back home in [place] for respiratory failure and pneumonia. 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 She had to be intubated 3 times and had a prolonged intubated course. She then underwent tracheostomy and PEG tube placement and was transferred to LTAC. She later developed sacral ulcer with failure to improve. She was eventually discharged from LTAC and weaned off the ventilator and PEG tube removed. Her daughter brought her back to [place] to help take care of her since she no longer qualified for ECF and/or inpatient nursing care. We were consulted to evaluate possible GI bleed. Hgb on admission 7.5 which came up to 9.5 and today Hgb 8.2. She reports she wants to go back to [place] to be with her and follow up with GI there. Procedures: No records NSAIDs: None Anticoagulation: Plavix A/P 1. Anemia: Stool occult negative initially but second sample positive. Hgb on admission 7.5 which came up to 9.5 on 09/05 and today Hgb 8.2. Continue to monitor CBC and transfuse PRBC as needed. Ferritin 108, iron <10. Continue iron supplement. Plan for EGD and colonoscopy tomorrow, but patient refused. Patient states she wants to follow up in [place], and have scopes completed there, so she can be close to her . I explained risks, such as continued bleeding, worsening anemia, TX, and . Patient continued to refuse scopes, and said she wants to have them completed in [place]. Past Med Surg Social Fam HX - Past Medical History Medical history: asthma, CHF, COPD, CVA, diabetes, fibromyalgia, glaucoma, hyperlipidemia, hypertension, thyroid disease Additional medical history: Stg 3 buttock wound-now unstagable Psychiatric history: anxiety, panic disorder - Past Surgical History Surgical History: angioplasty/stent, hysterectomy Additional surgical history: adrenal glands removed. trach and trach removal. cardiac stents x2 - Social History Smoking Status: Current every day smoker Smokeless Tobacco Status: No Alcohol use: none Drug use: none - Family History Mother History Unknown: Yes Father History Unknown: Yes - Gastrointestinal Gastrointestinal: Present: as per HPI - Constitutional Constitutional: as per HPI - EENT Eyes: as per HPI Ears: Present: as per HPI Nose, mouth and throat: Present: as per HPI - Cardiovascular Cardiovascular ROS: Present: as per HPI - Respiratory Respiratory IM: Present: as per HPI - Genitourinary Genitourinary: Absent: change in color, Urinary frequency - Neurological ROS Neurological GI: Present: as per HPI - Hematologic/Lymphatic Hematologic/Lymphatic pediatric: Present: as per HPI - Musculoskeletal Musculoskeletal ROS GI: Present: as per HPI - Integumentary Integumentary GI: Present: as per HPI - Psychiatric ROS Psychiatric GI: Present: as per HPI - Endocrine Endocrine IM: Present: as per HPI - Constitutional Vitals: Temp Pulse Resp BP Pulse Ox 97.8 F 88 15 137/70 96 09/09/18 10:37 09/09/18 10:37 09/09/18 10:37 09/09/18 10:37 09/09/18 10:37 General appearance: Present: cooperative, A&O X 3, no acute distress, answers questions appropriately - Head Head exam: Present: atraumatic, normocephalic - Eye Eye exam: Present: normal appearance, sclera anicteric - ENT ENT exam: Present: mucous membranes dry - Neck Neck exam general surgery: Present: normal inspection, trachea midline - Respiratory Respiratory exam: Present: CTAB. Absent: rales, rhonchi, wheezes - Cardiovascular Cardiovascular exam: Present: RRR, +S1, +S2 - GI/Abdominal GI/Abdominal exam: Present: soft, no peritoneal signs. Absent: distended, firm, guarding, tenderness - Rectal Rectal exam: Present: deferred - Extremities Exam Extremities exam: Present: warm - Neurological Exam Neurological exam: Present: no focal deficits - Psychiatric Psychiatric exam: Present: normal affect, normal mood - Skin Skin exam: Present: dry, intact, normal color, warm Results - Labs CBC & Chem 7: 09/09/18 04:41 09/09/18 04:41 Labs: Last Result 09/09/18 04:41 Calcium 7.3 L Entire Visit 09/09/18 04:41 Hgb 8.2 L Hct 25.9 L - ABG ABG results: PT/INR, D-dimer PT 12.5 Seconds (9.4-12.1) H 09/02/18 21:52 Consult Discharge Plan - Plan Referrals: NONE,PCP [Primary Care Provider] -
[2018-09-09] MEDS: Mirtazapine 15 MG TABLET PO SCH (20:31)
[2018-09-09] MEDS: Primidone 50 MG TABLET PO SCH (20:31)
[2018-09-10] MEDS: *HR* OxyCODONE ER (12 HR) 10 MG TABLET PO SCH (05:29)
[2018-09-10 06:37] LABS: Basophils % 0.2 %; Eosinophils # 0.2 K/mcL (0.0-0.6); Eosinophils % 1.7 %; Hematocrit 26.5 % (35.3-44.9); Hemoglobin 8.4 g/dL (11.5-15.4); Immature Granulocytes % 1.3 % (0-4); Lymphocytes # 3.2 K/mcL (0.6-4.6); Lymphocytes % 31.1 %; Mean Corpuscular HGB Conc 31.7 g/dL (31.6-35.5); Mean Corpuscular Hemoglobin 27.4 pg (28.0-33.3); Mean Corpuscular Volume 86.3 fL (83.0-100.0); Mean Platelet Volume 10.6 fL (9.4-12.4); Monocytes # 0.9 K/mcL (0.0-1.3); Monocytes % 8.4 %; Neutrophils # 5.9 K/mcL (1.6-8.9); Platelet Count 273 K/mcL (140-400); Red Blood Count 3.07 M/mcL (3.82-4.97); Segmented Neutrophils % 57.3 %
[2018-09-10] MEDS: Cefdinir 300 MG CAPSULE PO SCH (08:04)
[2018-09-10] MEDS: Doxycycline 100 MG CAPSULE PO SCH (08:04)
[2018-09-10] MEDS: Folic Acid 1 MG TABLET PO SCH (08:05)
[2018-09-10] MEDS: *HR* HYDROcodone/Acet 5/325 mg TABLET PO PRN ×2 (08:05→16:02)
[2018-09-10] MEDS: clonazePAM 1 MG TABLET PO PRN ×2 (08:05→16:02)
[2018-09-10] MEDS: predniSONE 5 MG TABLET PO SCH (08:05)
[2018-09-10] MEDS: Insulin LISPRO 300 UNITS/3 ML VIAL SQ SCH ×2 (08:06→11:53)
[2018-09-10 08:30] LABS: BUN/Creatinine Ratio 15 (6-26); Blood Urea Nitrogen 7 mg/dL (8-23); Calcium 7.5 mg/dL (8.6-10.3); Carbon Dioxide 25 mEq/L (23-29); Chloride 105 mEq/L (98-107); Glucose 261 mg/dL (70-105); Osmolality,Calculated 289 (280-300); Potassium 3.4 mEq/L (3.5-5.1); Sodium 136 mEq/L (136-145); eGFR For Non-African Americans > 60 (> 60)
[2018-09-10] MEDS ORDERED: Furosemide 40 MG TABLET PO ONE (09:30)
[2018-09-10] MEDS: Ipratropium/Albuterol Neb 3 ML IH PRN (09:53)
--- NOTE | 2018-09-10 11:24 | Discharge Summary ---
- NOTES TO OUTPATIENT PROVIDER Notes to Outpatient Provider: 1. Patient has UTI and decubitus ulcer infection, will continue by mouth antibiotics, please reevaluate as outpatient. Orders not resulted at time of discharge: Pending orders 09/02/18 21:38 Culture,Anaerobic [RM] Stat Date of Encounter: 09/10/18 Time of Encounter: 10:00 - Discharge Diagnosis (1) Sacral decubitus ulcer Priority: Primary Status: Acute Qualifiers: Pressure injury stage: unstageable Qualified Code(s): L89.150 - Pressure ulcer of sacral region, unstageable (2) UTI (urinary tract infection) Priority: Primary Status: Acute Qualifiers: Urinary tract infection type: site unspecified Hematuria presence: without hematuria Qualified Code(s): N39.0 - Urinary tract infection, site not specified (3) Anemia Priority: Secondary Status: Acute Qualifiers: Anemia type: unspecified type Qualified Code(s): D64.9 - Anemia, unspecified (4) COPD exacerbation Priority: Secondary Status: Acute (5) DVT prophylaxis Priority: Secondary Status: Acute (6) Adrenal insufficiency Priority: Secondary Status: Acute Hospital course: Ms. Rosenthal is a 63 year old female present to ER for decubitus ulcer and urinary tract infection. Patient was treated with antibiotics. Surgical consult saw patient, had a wound culture, which shows positive for Escherichia coli and SA. Surgical consult recommended no debridement needed. Urine culture shows pansensitive Escherichia coli. Patient has anemia, with FOBT positive, GI consult saw patient. However, patient refused scopes. Patient also was recommended to EC. However, patient's home is in [place], patient has and family member there. Patient has a daughter in [place]. Patient would like to go back to home for further management. Patient has COPD on home oxyg en and she has oxygen in [place] and portable tank. Discussed with patient's daughter by social group worker. Will DC patient to patient's daughter's home and her daughter will bring her to pt's home. Will continue by mouth antibiotic for skin and urine infection. Patient has no fever or leukocytosis. Will continue Kebede catheter as patient has decubitus ulcer. Patient's daughter is a nurse and promise to take care of patient's Kebede catheter. I have seen and examined the patient today. Feels fine, denies pain, fever, flank pain, nausea, or vomiting. Vitals are stable. Stable to discharge home with family support. Continue by mouth antibiotics and follow-up with PCP as outpatient. Discharge discussed with: patient - Time Spent with Patient Total time spent providing and/or coordinating discharge services: 30 minutes Time spent: Greater than 30 minutes - Discharge Medications Prescriptions: New RX: Doxycycline 100 mg PO BID 7 Days #14 capsule RX: Ferrous Sulfate 325 mg PO DAILY 30 Days #30 tablet RX: Cefdinir [Omnicef] 300 mg PO BID 7 Days #14 capsule Continued RX: Docusate Sodium [Colace] 200 mg PO BID RX: Ergocalciferol (VITAMIN D2) [Vitamin D2] 50,000 unit PO FR RX: Folic Acid 1 mg PO DAILY RX: Ipratropium/Albuterol Neb [Duoneb] 3 ml IH Q6HR PRN PRN Reason: sob RX: hydrOXYzine pamoate [HydrOXYzine Pamoate] 25 mg PO TID PRN PRN Reason: Anxiety RX: Fludrocortisone Acetate [Florinef] 0.1 mg PO DAILY RX: Mirtazapine [Remeron] 15 mg PO HS RX: PredniSONE [Cm] 5 mg PO DAILY RX: Pantoprazole Sodium [Protonix] 40 mg PO DAILY RX: clonazePAM [Klonopin] 1 mg PO TID PRN PRN Reason: Anxiety RX: Primidone [Mysoline] 150 mg PO HS RX: OxyCODONE ER (12 HR) [OxyCONTIN] 30 mg PO Q12H RX: Levothyroxine [Synthroid] 50 mcg PO 0630 RX: Potassium Chloride [K-Tab ER] 10 meq PO BID RX: Clopidogrel Bisulfate [Plavix] 75 mg PO DAILY RX: Atorvastatin Calcium [Lipitor] 80 mg PO HS RX: Furosemide [Lasix] 20 mg PO DAILY PRN PRN Reason: swelling RX: Propranolol [Inderal] 10 mg PO BID Home Medications: Atorvastatin Calcium [Lipitor] 80 mg PO HS 03/09/15 [History] Clopidogrel Bisulfate [Plavix] 75 mg PO DAILY 03/09/15 [History] Furosemide [Lasix] 20 mg PO DAILY PRN 03/09/15 [History] Levothyroxine [Synthroid] 50 mcg PO 0630 03/09/15 [History] OxyCODONE ER (12 HR) [OxyCONTIN] 30 mg PO Q12H 03/09/15 [History] Potassium Chloride [K-Tab ER] 10 meq PO BID 03/09/15 [History] Propranolol [Inderal] 10 mg PO BID 03/09/15 [History] Docusate Sodium [Colace] 200 mg PO BID 09/03/18 [History] Ergocalciferol (VITAMIN D2) [Vitamin D2] 50,000 unit PO FR 09/03/18 [History] Fludrocortisone Acetate [Florinef] 0.1 mg PO DAILY 09/03/18 [History] Folic Acid 1 mg PO DAILY 09/03/18 [History] Ipratropium/Albuterol Neb [Duoneb] 3 ml IH Q6HR PRN 09/03/18 [History] Mirtazapine [Remeron] 15 mg PO HS 09/03/18 [History] Pantoprazole Sodium [Protonix] 40 mg PO DAILY 09/03/18 [History] PredniSONE [Cm] 5 mg PO DAILY 09/03/18 [History] Primidone [Mysoline] 150 mg PO HS 09/03/18 [History] clonazePAM [Klonopin] 1 mg PO TID PRN 09/03/18 [History] hydrOXYzine pamoate [HydrOXYzine Pamoate] 25 mg PO TID PRN 09/03/18 [History] Cefdinir [Omnicef] 300 mg PO BID 7 Days #14 capsule 09/10/18 [Rx] Doxycycline 100 mg PO BID 7 Days #14 capsule 09/10/18 [Rx] Ferrous Sulfate 325 mg PO DAILY 30 Days #30 tablet 09/10/18 [Rx] Allergies/Adverse Reactions: Allergy/AdvReac Type Severity Reaction Status Date / Time Amoxicillin Allergy Hives Verified 09/02/18 19:58 cetirizine [From Zyrtec] Allergy Hypertensio Verified 09/02/18 19:58 n Erythromycin Base Allergy Hives Verified 09/02/18 19:58 levofloxacin [From Levaquin] Allergy See Verified 09/02/18 19:58 Comments naproxen Allergy Rash Verified 09/02/18 19:58 Penicillins [PCN] Allergy Hives Verified 09/02/18 19:58 tramadol [From Ultram] Allergy Rash Verified 09/02/18 19:58 Date of admission: 09/03/18 02:43 Primary care physician: PCP NONE Consults: 09/03/18 02:15 Consult to Pastoral Services [CONS] Routine Comment: Consult to [employer] Operator [CONS] Routine Reason for SW Consult: home care services 09/03/18 02:30 Consult to Wound Care [CONS] Routine Reason for Consult: sacral ulcer Call Completed: No 09/03/18 04:32 Consult to Surgery [CONS] Routine Consulting Provider: Sergio Dockery Reason for Consult: sacral ulcer Time Notified: 04:33 Call Completed: Yes 09/03/18 08:32 Consult to Nurse Navigator [CONS] Stat Comment: copd 09/04/18 08:17 Consult to [employer] Operator [CONS] Routine Reason for SW Consult: Daughter would like to look into placement options for patient (short term rehab) when she is ready to discharge. She is listed as self pay. Has active Medicaid in [place]. Unable to apply for [place] Medicaid until she has been a resident for 30 days and has only been here for a week. 09/04/18 10:52 Consult to Occupational Therapy [CONS] Routine Comment: Evaluate, develop and implement POC Reason for Consult: improve mobility, recent strok, lt sided weakness Does patient have active BEDREST order?: No Is patient medically & hemodynamically stable?: Yes Consult to Physical Therapy [CONS] Routine Comment: Evaluate, develop and implement POC Reason for Consult: improve mobility, recent strok, lt sided weakness Does patient have active BEDREST order?: No Is patient medically & hemodynamically stable?: Yes 09/08/18 10:29 Consult to Gastroenterology [CONS] Routine Consulting Provider: Breanna Lopez Reason for Consult: Possible GI bleed Call Completed: Yes Discharging clinician: Heath Thompson Anticipated date of discharge: 09/10/18 - Constitutional Vitals: Temp Pulse Resp BP Pulse Ox 98.8 F 101 16 131/66 98 09/10/18 05:28 09/10/18 05:28 09/10/18 09:53 09/10/18 05:28 09/10/18 09:53 General appearance: Present: cooperative, A&O X 3, pleasant, answers questions appropriately Exam: General: In no acute distress. Respiratory exam: CTAB. no accessory muscle use, rales, rhonchi, wheezes Cardiovascular exam: RRR, +S1, +S2. no murmur, gallop, rubs. GI/Abdominal exam: Non-tender, Non-distended, normal bowel sounds, soft, no peritoneal signs. Extremities exam: no pedal edema, pulses palpable in b/l lower extremities. no calf tenderness Neurological exam: CN II-XII intact, AO X3, Lt leg weakness Skin exam: sacral decubitus with dressing - Patient Status Disposition: Home, Self-Care Condition: Fair Functional capacity at discharge: wheelchair bound Overall status at discharge: patient is progressing back to baseline - Discharge Instructions Follow Up With: NONE,PCP [Primary Care Provider] - - Diet and Activity Activity: wear oxygen at all times Diet: diabetic diet
[2018-09-10 11:46] VITALS: BP 117/70
== END 2018-09-10 16:40 | disposition home or self-care (01) | DRG 593 ==
LOC: 3ANU 19:44 → EMEROOARM 19:44 → 3ANU 09-03 01:32 → SUATTDRO 09-03 02:43
PROVIDERS: ADMIT Family Medicine; ATTEND Internal Medicine